=== PATIENT | female | born 1935 | race African-American/Black ===

== ENCOUNTER 2019-06-26 10:51 | Inpatient (IN) | payer MEDICARE, OTHER ==
[~2019-06-26] VITALS: Ht 154.9 cm; Wt 49.2 kg
[~2019-06-26 10:51] MED LIST: ASPIRIN-LOW81 MG ORAL; COMBIVENT RESPIM4 GM IH; DIAZEPAM5 MG ORAL; GLIMEPIRIDE1 MG ORAL; KEFLEX500 MG ORAL; LASIX20 M1 ORAL; LEVOTHYROXINE25 MCG ORAL; LISINOPRIL-HCT1 EACH ORAL; LOSARTAN POTASS25 MG ORAL; METOCLOPRAMIDE H5 M1 ORAL; NOVOLIN 70100 UNIT/1 SUBQ; OMEPRAZOLE20 M3 ORAL; PANTOPRAZOLE SO40 MG ORAL; SEROQUEL200 MG ORAL; TRAMADOL HCL50 MG ORAL; VITAMIN D1000 UNI1 ORAL; ZOCOR20 M1 ORAL; ZOFRAN4 M3 ORAL
--- NOTE | 2019-06-26 10:55 | NUR ---
ED Nurse Note: PT walked in to ED for C/O cough x 2 days. PT reports having Hx of COPD. PT denies fever or recent travels.
[2019-06-26 10:56] VITALS: BP 176/86
[2019-06-26] MEDS ORDERED: Ipratropium 0.02% Inh Soln 2.5ml UD HHN ONE (11:15)
[2019-06-26] MEDS ORDERED: Albuterol ud Inhalation HHN ONE ×2 (11:15→12:00)
[2019-06-26] MEDS ORDERED: Azithromycin 250mg tab PO ONE (11:15)
[2019-06-26 11:51] LABS: BASOPHILS % (AUTO) 1.5 % (0.0-2.0); EOSINOPHILS % (AUTO) 10.8 % (0.0-3.0); HEMATOCRIT 37.3 % (37.0-47.0); HEMOGLOBIN 12.1 G/DL (12.0-16.0); LYMPHOCYTES % (AUTO) 53.2 % (20.0-45.0); MEAN CORPUSCULAR VOLUME 79 FL (80-99); MONOCYTES % (AUTO) 5.5 % (1.0-10.0); PLATELET COUNT 217 K/UL (150-450); RED BLOOD COUNT 4.74 M/UL (4.20-5.40); RED CELL DISTRIBUTION WIDTH 16.6 % (11.6-14.8); WHITE BLOOD COUNT 5.6 K/UL (4.8-10.8)
[2019-06-26 11:58] LABS: APPEARANCE,URINE SLIGHTLY CLOUDY; BILIRUBIN, URINE NEGATIVE (NEGATIVE); COLOR,URINE YELLOW; GLUCOSE, URINE (UA) NEGATIVE (NEGATIVE); KETONES,URINE NEGATIVE (NEGATIVE); LEUKOCYTE ESTERASE ,URINE 3+ (NEGATIVE); NITRITE,URINE NEGATIVE (NEGATIVE); PH,URINE 6.5 (4.5-8.0); PROTEIN,URINE NEGATIVE (NEGATIVE); UROBILINOGEN,URINE NORMAL MG/DL (0.0-1.0)
[2019-06-26 12:01] LABS: ANION GAP 9 mmol/L (5-15); BLOOD UREA NITROGEN 12 mg/dL (7-18); CALCIUM 9.5 MG/DL (8.5-10.1); CARBON DIOXIDE 29 MMOL/L (21-32); CHLORIDE 107 MMOL/L (98-107); CREATININE 0.8 MG/DL (0.55-1.30); POTASSIUM 3.7 MMOL/L (3.5-5.1); SODIUM 145 MMOL/L (136-145)
[2019-06-26 12:06] LABS: ALANINE AMINOTRANSFERASE 14 U/L (12-78); ALKALINE PHOSPHATASE 162 U/L (46-116); ASPARTATE AMINO TRANSFERASE 15 U/L (15-37); BILIRUBIN,TOTAL 0.2 MG/DL (0.2-1.0)
[2019-06-26 12:10] VITALS: BP 186/74
--- NOTE | 2019-06-26 12:27 | Diagnostic Imaging Report ---
Indication: Dyspnea Comparison: None A single view chest radiograph was obtained. Findings: No definite infiltrate or pulmonary vascular congestion identified. The heart is enlarged. The aorta is mildly enlarged consistent with atherosclerotic vascular disease. The bones are osteopenic. There are thoracic vertebral enthesophytes at multiple levels. Impression: No acute disease
--- NOTE | 2019-06-26 13:31 | NUR ---
ED Nurse Note: Noted latest BP: 186/74, reported to Dr. Walters.
--- NOTE | 2019-06-26 14:05 | Emergency Room Report ---
History of Present Illness General Chief Complaint: Dyspnea/Respdistress Source: Patient Present Illness HPI This patient states that for the past 2 days she has had shortness of breath and difficulty breathing. She has had a cough with sputum production. She denies fever or chills. She denies nausea or vomiting. She denies chest pain. She has been using her home inhalers without relief. She has no other complaints. COVID-19 risk:Travel to affect: No Coronavirus symptoms experienc: Shortness of Breath, Cough Allergies: Coded Allergies: PENICILLIN V (Verified Allergy, Severe, 08/26/13) PENICILLINS (Unverified Allergy, Unknown, 06/26/19) Patient History Past Medical History: see triage record, DM, HTN, COPD Social History: Denies: smoking, alcohol use, drug use Reviewed Nursing Documentation: PMH: Agreed; PSxH: Agreed Nursing Documentation-PMH Hx Hypertension: Yes Hx COPD: Yes Hx Diabetes: Yes Review of Systems All Other Systems: negative except mentioned in HPI Physical Exam Vital Signs Date Time Temp Pulse Resp B/P (MAP) Pulse Ox O2 Delivery O2 Flow Rate FiO2 06/26/19 10:46 98.1 65 17 184/84 (117) 89 Room Air 06/26/19 11:22 21 Sp02 EP Interpretation: reviewed, normal General Appearance: no apparent distress, alert, GCS 15, non-toxic Head: normocephalic, atraumatic Eyes: bilateral eye normal inspection, bilateral eye PERRL ENT: hearing grossly normal, normal pharynx, no angioedema, normal voice Neck: full range of motion, supple/symm/no masses Respiratory: chest non-tender, no respiratory distress, no accessory muscle use , wheezing, expiration Cardiovascular #1: regular rate, rhythm, no edema Gastrointestinal: normal bowel sounds, non tender, soft, non-distended, no guarding, no rebound Rectal: deferred Musculoskeletal: normal inspection, back normal, normal range of motion, non- tender Neurologic: alert, motor strength/tone normal, oriented x3, sensory intact, responsive, speech normal Psychiatric: judgement/insight normal, memory normal, mood/affect normal, no suicidal/homicidal ideation Skin: no rash, normal color Medical Decision Making Diagnostic Impression: Primary Impression: COPD exacerbation ER Course This elderly female presents with a COPD exacerbation. She was given 10 mg of nebulized albuterol. She continued to have wheezing and dyspnea despite maximal treatment with albuterol, prednisone. I also gave the patient broad- spectrum antibiotics as a precaution. Patient will be admitted for pulmonary hygiene and further evaluation and treatment. Laboratory Tests Test 06/26/19 11:20 06/26/19 11:21 Urine Color Yellow Urine Appearance Slightly cloudy Urine pH 6.5 (4.5-8.0) Urine Specific [place] 1.015 (1.005-1.035) Urine Protein Negative (NEGATIVE) Urine Glucose (UA) Negative (NEGATIVE) Urine Ketones Negative (NEGATIVE) Urine Blood 2+ (NEGATIVE) H Urine Nitrite Negative (NEGATIVE) Urine Bilirubin Negative (NEGATIVE) Urine Urobilinogen Normal MG/DL (0.0-1.0) Urine Leukocyte Esterase 3+ (NEGATIVE) H Urine RBC 2-4 /HPF (0 - 2) H Urine WBC 20-30 /HPF (0 - 2) H Urine Squamous Epithelial Cells Many /LPF (NONE/OCC) H Urine Bacteria Moderate /HPF (NONE) H White Blood Count 5.6 K/UL (4.8-10.8) Red Blood Count 4.74 M/UL (4.20-5.40) Hemoglobin 12.1 G/DL (12.0-16.0) Hematocrit 37.3 % (37.0-47.0) Mean Corpuscular Volume 79 FL (80-99) L Mean Corpuscular Hemoglobin 25.5 PG (27.0-31.0) L Mean Corpuscular Hemoglobin Concent 32.4 G/DL (32.0-36.0) Red Cell Distribution Width 16.6 % (11.6-14.8) H Platelet Count 217 K/UL (150-450) Mean Platelet Volume 7.1 FL (6.5-10.1) Neutrophils (%) (Auto) 29.0 % (45.0-75.0) L Lymphocytes (%) (Auto) 53.2 % (20.0-45.0) H Monocytes (%) (Auto) 5.5 % (1.0-10.0) Eosinophils (%) (Auto) 10.8 % (0.0-3.0) H Basophils (%) (Auto) 1.5 % (0.0-2.0) Sodium Level 145 MMOL/L (136-145) Potassium Level 3.7 MMOL/L (3.5-5.1) Chloride Level 107 MMOL/L (98-107) Carbon Dioxide Level 29 MMOL/L (21-32) Anion Gap 9 mmol/L (5-15) Blood Urea Nitrogen 12 mg/dL (7-18) Creatinine 0.8 MG/DL (0.55-1.30) Estimated Glomerular Filtration Rate > 60 mL/min (>60) Glucose Level 110 MG/DL (74-106) H Calcium Level 9.5 MG/DL (8.5-10.1) Total Bilirubin 0.2 MG/DL (0.2-1.0) Aspartate Amino Transferase (AST) 15 U/L (15-37) Alanine Aminotransferase (ALT) 14 U/L (12-78) Alkaline Phosphatase 162 U/L (46-116) H Troponin I 0.000 ng/mL (0.000-0.056) Total Protein 8.1 G/DL (6.4-8.2) Albumin 4.0 G/DL (3.4-5.0) Globulin 4.1 g/dL Albumin/Globulin Ratio 1.0 (1.0-2.7) Microbiology Date/Time Source Procedure Growth Status 06/26/19 11:20 Nasal Nares - Final Complete 06/26/19 11:20 Nasal Nares - Final Complete EKG Diagnostic Results Rate: bradycardiac Rhythm: other - S.bradycardia ST Segments: other - NSST findings Rhythm Strip Diag. Results EP Interpretation: yes Rate: 80's Rhythm: NSR, no PVC's, no ectopy Chest X-Ray Diagnostic Results Chest X-Ray Diagnostic Results : Chest X-Ray Ordered: Yes # of Views/Limited/Complete: 1 View Indication: Shortness of Breath EP Interpretation: Yes Interpretation: no consolidation, no effusion, no pneumothorax, no acute cardiopulmonary disease Impression: No acute disease Electronically Signed by: Delores Walters DO Last Vital Signs Date Time Temp Pulse Resp B/P (MAP) Pulse Ox O2 Delivery O2 Flow Rate FiO2 06/26/19 12:16 66 18 100 Room Air 21 64 15 100 06/26/19 10:56 98.1 176/86 Disposition: ADMITTED INPATIENT Condition: Serious Referrals: NOT CHOSEN IPA/,REFERRING (PCP) Delores Walters DO Jun 26, 2019 14:05
[2019-06-26] MEDS ORDERED: DiphenhydrAMINE 25mg Tab ORAL PRN (14:15)
--- NOTE | 2019-06-26 14:17 | History and Physical ---
History of Present Illness General Date patient seen: Jun 26, 2019 Time patient seen: 14:00 Reason for Hospitalization: Dyspnea/Respdistress Present Illness HPI 83 year old woman with history of COPD, not on supplemental oxygen, HTN, hypothyroidism, NIDDM who presented to the ED with Allergies: Coded Allergies: PENICILLIN V (Verified Allergy, Severe, 08/26/13) PENICILLINS (Unverified Allergy, Unknown, 06/26/19) Medication History Scheduled Aspirin (Aspirin EC), 81 MG ORAL DAILY, (Reported) Cephalexin* (Keflex*), 500 MG ORAL Q6H Cholecalciferol (Vitamin D3)* (Vitamin D*), 1,000 UNIT ORAL DAILY, (Reported) Furosemide* (Lasix*), 20 MG ORAL DAILY, (Reported) Glimepiride* (Glimepiride*), 2 MG ORAL DAILY, (Reported) Hum Insulin Nph/Reg Insulin Hm (Novolin 70-30 100 Unit/Ml Vial), 15 SUBQ ACBREAKFAST, (Reported) Hum Insulin Nph/Reg Insulin Hm (Novolin 70-30 100 Unit/Ml Vial), 5 SUBQ QHS, ( Reported) Ipratropium/Albuterol Sulfate (Combivent Respimat Inhal [place]), 4 GM IH DAILY, ( Reported) Levothyroxine Sodium* (Levothyroxine Sodium*), 12.5 MCG ORAL DAILY, (Reported) Lisinopril/Hydrochlorothiazide 10-12.5 Mg Tab (Lisinopril-Hctz 10-12.5 Mg Tab), 1 TAB ORAL DAILY, (Reported) Losartan Potassium* (Losartan Potassium*), 25 MG ORAL DAILY, (Reported) Metoclopramide Hcl* (Metoclopramide Hcl*), 5 MG ORAL EVERY 6 HOURS, (Reported) Omeprazole (Omeprazole), 20 MG ORAL DAILY, (Reported) Pantoprazole* (Pantoprazole*), 40 MG ORAL DAILY, (Reported) Quetiapine Fumarate* (Seroquel*), 300 MG ORAL DAILY, (Reported) Simvastatin (Zocor), 20 MG ORAL BEDTIME, (Reported) Scheduled PRN Diazepam* (Diazepam*), 5 MG ORAL BID PRN for For Anxiety, (Reported) Ondansetron* (Zofran*), 4 MG ORAL Q6H PRN for Nausea & Vomiting, (Reported) Tramadol Hcl* (Ultram*), 50 MG ORAL Q6H PRN for For Pain Patient History Healthcare decision maker Resuscitation status Advanced Directive on File Physical Exam Last 24 Hour Vital Signs Date Time Temp Pulse Resp B/P (MAP) Pulse Ox O2 Delivery O2 Flow Rate FiO2 06/26/19 12:16 66 18 100 Room Air 21 64 15 100 06/26/19 11:22 54 18 100 Room Air 21 57 16 99 06/26/19 10:56 98.1 70 18 176/86 89 Room Air 06/26/19 10:56 70 18 Room Air 06/26/19 10:46 98.1 65 17 184/84 (117) 89 Room Air Laboratory Tests Test 06/26/19 11:20 06/26/19 11:21 Urine Color Yellow Urine Appearance Slightly cloudy Urine pH 6.5 (4.5-8.0) Urine Specific [place] 1.015 (1.005-1.035) Urine Protein Negative (NEGATIVE) Urine Glucose (UA) Negative (NEGATIVE) Urine Ketones Negative (NEGATIVE) Urine Blood 2+ (NEGATIVE) H Urine Nitrite Negative (NEGATIVE) Urine Bilirubin Negative (NEGATIVE) Urine Urobilinogen Normal MG/DL (0.0-1.0) Urine Leukocyte Esterase 3+ (NEGATIVE) H Urine RBC 2-4 /HPF (0 - 2) H Urine WBC 20-30 /HPF (0 - 2) H Urine Squamous Epithelial Cells Many /LPF (NONE/OCC) H Urine Bacteria Moderate /HPF (NONE) H White Blood Count 5.6 K/UL (4.8-10.8) Red Blood Count 4.74 M/UL (4.20-5.40) Hemoglobin 12.1 G/DL (12.0-16.0) Hematocrit 37.3 % (37.0-47.0) Mean Corpuscular Volume 79 FL (80-99) L Mean Corpuscular Hemoglobin 25.5 PG (27.0-31.0) L Mean Corpuscular Hemoglobin Concent 32.4 G/DL (32.0-36.0) Red Cell Distribution Width 16.6 % (11.6-14.8) H Platelet Count 217 K/UL (150-450) Mean Platelet Volume 7.1 FL (6.5-10.1) Neutrophils (%) (Auto) 29.0 % (45.0-75.0) L Lymphocytes (%) (Auto) 53.2 % (20.0-45.0) H Monocytes (%) (Auto) 5.5 % (1.0-10.0) Eosinophils (%) (Auto) 10.8 % (0.0-3.0) H Basophils (%) (Auto) 1.5 % (0.0-2.0) Sodium Level 145 MMOL/L (136-145) Potassium Level 3.7 MMOL/L (3.5-5.1) Chloride Level 107 MMOL/L (98-107) Carbon Dioxide Level 29 MMOL/L (21-32) Anion Gap 9 mmol/L (5-15) Blood Urea Nitrogen 12 mg/dL (7-18) Creatinine 0.8 MG/DL (0.55-1.30) Estimat Glomerular Filtration Rate > 60 mL/min (>60) Glucose Level 110 MG/DL (74-106) H Calcium Level 9.5 MG/DL (8.5-10.1) Total Bilirubin 0.2 MG/DL (0.2-1.0) Aspartate Amino Transf (AST/SGOT) 15 U/L (15-37) Alanine Aminotransferase (ALT/SGPT) 14 U/L (12-78) Alkaline Phosphatase 162 U/L (46-116) H Troponin I 0.000 ng/mL (0.000-0.056) Total Protein 8.1 G/DL (6.4-8.2) Albumin 4.0 G/DL (3.4-5.0) Globulin 4.1 g/dL Albumin/Globulin Ratio 1.0 (1.0-2.7) Microbiology Date/Time Source Procedure Growth Status 06/26/19 11:20 Nasal Nares - Final Complete 06/26/19 11:20 Nasal Nares - Final Complete Height (Feet): 5 Height (Inches): 1.00 Weight (Pounds): 114 Medications Current Medications Medications (Trade) Dose Ordered Sig/Sergio Route PRN Reason Start Time Stop Time Status Last Admin Dose Admin Acetaminophen (Tylenol) 650 mg Q4H PRN ORAL Mild Pain (Pain Scale 1-3) 06/26/19 14:15 07/26/19 14:14 UNV Albuterol/ Ipratropium (Albuterol/ Ipratropium) 3 ml Q4H HHN 06/26/19 14:15 07/01/19 14:14 UNV Aspirin (Ecotrin) 81 mg DAILY ORAL 06/27/19 09:00 08/11/19 08:59 UNV Azithromycin (Zithromax) 250 mg DAILY ORAL 06/27/19 09:00 07/04/19 08:59 UNV Dextrose (Dextrose 50%) 25 ml Q30M PRN IV Hypoglycemia 06/26/19 14:15 09/24/19 14:14 UNV Dextrose (Dextrose 50%) 25 ml Q30M PRN IV Hypoglycemia 06/26/19 14:15 09/24/19 14:14 UNV Dextrose (Dextrose 50%) 50 ml Q30M PRN IV Hypoglycemia 06/26/19 14:15 09/24/19 14:14 UNV Dextrose (Dextrose 50%) 50 ml Q30M PRN IV Hypoglycemia 06/26/19 14:15 09/24/19 14:14 UNV Diazepam (Valium) 5 mg BID PRN ORAL For Anxiety 06/26/19 14:15 07/03/19 14:14 UNV Diphenhydramine HCl (Benadryl) 25 mg Q6H PRN ORAL Itching/Pruritis 06/26/19 14:15 07/26/19 14:14 UNV Docusate Sodium (Colace) 100 mg EVERY 12 HOURS ORAL 06/26/19 21:00 07/26/19 20:59 UNV Heparin Sodium (Porcine) (Heparin 5000 units/ml) 5,000 units EVERY 12 HOURS SUBQ 06/26/19 21:00 08/10/19 20:59 UNV Insulin Aspart (NovoLOG) BEFORE MEALS AND HS SUBQ 06/26/19 16:30 09/24/19 16:29 UNV Levothyroxine Sodium (Synthroid) 12.5 mcg DAILY ORAL 06/27/19 09:00 07/27/19 08:59 UNV Losartan Potassium (Cozaar) 25 mg DAILY ORAL 06/27/19 09:00 07/27/19 08:59 UNV Ondansetron HCl (Zofran) 4 mg Q6H PRN IVP Nausea & Vomiting 06/26/19 14:15 07/26/19 14:14 UNV Prednisone (predniSONE) 60 mg DAILY ORAL 06/27/19 09:00 07/27/19 08:59 UNV Vitamin D (Vitamin D) 1,000 intlu DAILY ORAL 06/27/19 09:00 07/27/19 08:59 UNV Bjorn Castillo MD Jun 26, 2019 14:17
[2019-06-26 14:23] VITALS: BP 177/78
--- NOTE | 2019-06-26 14:35 | History and Physical ---
History of Present Illness General Date patient seen: Jun 26, 2019 Time patient seen: 14:18 Reason for Hospitalization: Dyspnea/Respdistress Present Illness HPI 83 year old woman with COPD, not on supplemental oxygen at baseline, HTN, NIDDM , hypothyroidism who presented to the ED with days 3 days of progressive dyspnea and cough productive of scant sputum. She also reports exertional dyspnea but not chest pain, palpitations, edema. She denies fever or chills. She denies nausea or vomiting. She denies chest pain. She has been using her home inhalers without relief. She has no other complaint. No sick contacts or exposure to persons with known COVID-19. No airplane travel overseas. In ED she was treated with inhaled bronchodilators, prednisone with some improvement in her symptoms. CXR and influenza swab negative. She was referred for admission for COPD exacerbation. Family Hx: No premature CAD Social Hx: Lives with son who feels well, no similar symptoms Allergies: Coded Allergies: PENICILLIN V (Verified Allergy, Severe, 08/26/13) PENICILLINS (Unverified Allergy, Unknown, 06/26/19) Medication History Scheduled Aspirin (Aspirin EC), 81 MG ORAL DAILY, (Reported) Cephalexin* (Keflex*), 500 MG ORAL Q6H Cholecalciferol (Vitamin D3)* (Vitamin D*), 1,000 UNIT ORAL DAILY, (Reported) Furosemide* (Lasix*), 20 MG ORAL DAILY, (Reported) Glimepiride* (Glimepiride*), 2 MG ORAL DAILY, (Reported) Hum Insulin Nph/Reg Insulin Hm (Novolin 70-30 100 Unit/Ml Vial), 15 SUBQ ACBREAKFAST, (Reported) Hum Insulin Nph/Reg Insulin Hm (Novolin 70-30 100 Unit/Ml Vial), 5 SUBQ QHS, ( Reported) Ipratropium/Albuterol Sulfate (Combivent Respimat Inhal [place]), 4 GM IH DAILY, ( Reported) Levothyroxine Sodium* (Levothyroxine Sodium*), 12.5 MCG ORAL DAILY, (Reported) Lisinopril/Hydrochlorothiazide 10-12.5 Mg Tab (Lisinopril-Hctz 10-12.5 Mg Tab), 1 TAB ORAL DAILY, (Reported) Losartan Potassium* (Losartan Potassium*), 25 MG ORAL DAILY, (Reported) Metoclopramide Hcl* (Metoclopramide Hcl*), 5 MG ORAL EVERY 6 HOURS, (Reported) Omeprazole (Omeprazole), 20 MG ORAL DAILY, (Reported) Pantoprazole* (Pantoprazole*), 40 MG ORAL DAILY, (Reported) Quetiapine Fumarate* (Seroquel*), 300 MG ORAL DAILY, (Reported) Simvastatin (Zocor), 20 MG ORAL BEDTIME, (Reported) Scheduled PRN Diazepam* (Diazepam*), 5 MG ORAL BID PRN for For Anxiety, (Reported) Ondansetron* (Zofran*), 4 MG ORAL Q6H PRN for Nausea & Vomiting, (Reported) Tramadol Hcl* (Ultram*), 50 MG ORAL Q6H PRN for For Pain Patient History Healthcare decision maker Resuscitation status Advanced Directive on File Review of Systems Constitutional: Denies: chills, sweats, fever Respiratory: Reports: cough, shortness of breath, wheezing; Denies: stridor, TEE Cardiovascular: Denies: chest pain, edema, palpitations Gastrointestinal: Denies: abdominal pain, constipation, diarrhea Genitourinary: Denies: dysuria Musculoskeletal: Denies: back pain Skin: Denies: rash Neurological: Denies: headache Endocrine: Denies: excessive sweating Hematologic/Lymphatic: Denies: anemia Physical Exam General Appearance: no apparent distress, alert HEENT: atraumatic, anicteric Neck: normal alignment, supple Respiratory/Chest: no accessory muscle use, decreased breath sounds, expiratory wheezing Cardiovascular/Chest: normal rate, regular rhythm Abdomen: non tender, soft, no organomegaly, no mass Extremities: non-tender, normal inspection 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 grossly normal, no motor/sensory deficits, alert, oriented x 3 Last 24 Hour Vital Signs Date Time Temp Pulse Resp B/P (MAP) Pulse Ox O2 Delivery O2 Flow Rate FiO2 06/26/19 12:16 66 18 100 Room Air 21 64 15 100 06/26/19 11:22 54 18 100 Room Air 21 57 16 99 06/26/19 10:56 98.1 70 18 176/86 89 Room Air 06/26/19 10:56 70 18 Room Air 06/26/19 10:46 98.1 65 17 184/84 (117) 89 Room Air Laboratory Tests Test 06/26/19 11:20 06/26/19 11:21 Urine Color Yellow Urine Appearance Slightly cloudy Urine pH 6.5 (4.5-8.0) Urine Specific [place] 1.015 (1.005-1.035) Urine Protein Negative (NEGATIVE) Urine Glucose (UA) Negative (NEGATIVE) Urine Ketones Negative (NEGATIVE) Urine Blood 2+ (NEGATIVE) H Urine Nitrite Negative (NEGATIVE) Urine Bilirubin Negative (NEGATIVE) Urine Urobilinogen Normal MG/DL (0.0-1.0) Urine Leukocyte Esterase 3+ (NEGATIVE) H Urine RBC 2-4 /HPF (0 - 2) H Urine WBC 20-30 /HPF (0 - 2) H Urine Squamous Epithelial Cells Many /LPF (NONE/OCC) H Urine Bacteria Moderate /HPF (NONE) H White Blood Count 5.6 K/UL (4.8-10.8) Red Blood Count 4.74 M/UL (4.20-5.40) Hemoglobin 12.1 G/DL (12.0-16.0) Hematocrit 37.3 % (37.0-47.0) Mean Corpuscular Volume 79 FL (80-99) L Mean Corpuscular Hemoglobin 25.5 PG (27.0-31.0) L Mean Corpuscular Hemoglobin Concent 32.4 G/DL (32.0-36.0) Red Cell Distribution Width 16.6 % (11.6-14.8) H Platelet Count 217 K/UL (150-450) Mean Platelet Volume 7.1 FL (6.5-10.1) Neutrophils (%) (Auto) 29.0 % (45.0-75.0) L Lymphocytes (%) (Auto) 53.2 % (20.0-45.0) H Monocytes (%) (Auto) 5.5 % (1.0-10.0) Eosinophils (%) (Auto) 10.8 % (0.0-3.0) H Basophils (%) (Auto) 1.5 % (0.0-2.0) Sodium Level 145 MMOL/L (136-145) Potassium Level 3.7 MMOL/L (3.5-5.1) Chloride Level 107 MMOL/L (98-107) Carbon Dioxide Level 29 MMOL/L (21-32) Anion Gap 9 mmol/L (5-15) Blood Urea Nitrogen 12 mg/dL (7-18) Creatinine 0.8 MG/DL (0.55-1.30) Estimat Glomerular Filtration Rate > 60 mL/min (>60) Glucose Level 110 MG/DL (74-106) H Calcium Level 9.5 MG/DL (8.5-10.1) Total Bilirubin 0.2 MG/DL (0.2-1.0) Aspartate Amino Transf (AST/SGOT) 15 U/L (15-37) Alanine Aminotransferase (ALT/SGPT) 14 U/L (12-78) Alkaline Phosphatase 162 U/L (46-116) H Troponin I 0.000 ng/mL (0.000-0.056) Total Protein 8.1 G/DL (6.4-8.2) Albumin 4.0 G/DL (3.4-5.0) Globulin 4.1 g/dL Albumin/Globulin Ratio 1.0 (1.0-2.7) Microbiology Date/Time Source Procedure Growth Status 06/26/19 11:20 Nasal Nares - Final Complete 06/26/19 11:20 Nasal Nares - Final Complete Height (Feet): 5 Height (Inches): 1.00 Weight (Pounds): 114 Medications Current Medications Medications (Trade) Dose Ordered Sig/Sergio Route PRN Reason Start Time Stop Time Status Last Admin Dose Admin Acetaminophen (Tylenol) 650 mg Q4H PRN ORAL Mild Pain (Pain Scale 1-3) 06/26/19 14:15 07/26/19 14:14 UNV Albuterol/ Ipratropium (Albuterol/ Ipratropium) 3 ml Q4H HHN 06/26/19 14:15 07/01/19 14:14 UNV Aspirin (Ecotrin) 81 mg DAILY ORAL 06/27/19 09:00 08/11/19 08:59 UNV Azithromycin (Zithromax) 250 mg DAILY ORAL 06/27/19 09:00 07/04/19 08:59 UNV Dextrose (Dextrose 50%) 25 ml Q30M PRN IV Hypoglycemia 06/26/19 14:15 09/24/19 14:14 UNV Dextrose (Dextrose 50%) 25 ml Q30M PRN IV Hypoglycemia 06/26/19 14:15 09/24/19 14:14 UNV Dextrose (Dextrose 50%) 50 ml Q30M PRN IV Hypoglycemia 06/26/19 14:15 09/24/19 14:14 UNV Dextrose (Dextrose 50%) 50 ml Q30M PRN IV Hypoglycemia 06/26/19 14:15 09/24/19 14:14 UNV Diazepam (Valium) 5 mg BID PRN ORAL For Anxiety 06/26/19 14:15 07/03/19 14:14 UNV Diphenhydramine HCl (Benadryl) 25 mg Q6H PRN ORAL Itching/Pruritis 06/26/19 14:15 07/26/19 14:14 UNV Docusate Sodium (Colace) 100 mg EVERY 12 HOURS ORAL 06/26/19 21:00 07/26/19 20:59 UNV Heparin Sodium (Porcine) (Heparin 5000 units/ml) 5,000 units EVERY 12 HOURS SUBQ 06/26/19 21:00 08/10/19 20:59 UNV Insulin Aspart (NovoLOG) BEFORE MEALS AND HS SUBQ 06/26/19 16:30 09/24/19 16:29 UNV Levothyroxine Sodium (Synthroid) 12.5 mcg DAILY ORAL 06/27/19 09:00 07/27/19 08:59 UNV Losartan Potassium (Cozaar) 25 mg DAILY ORAL 06/27/19 09:00 07/27/19 08:59 UNV Ondansetron HCl (Zofran) 4 mg Q6H PRN IVP Nausea & Vomiting 06/26/19 14:15 07/26/19 14:14 UNV Prednisone (predniSONE) 60 mg DAILY ORAL 06/27/19 09:00 07/27/19 08:59 UNV Vitamin D (Vitamin D) 1,000 intlu DAILY ORAL 06/27/19 09:00 07/27/19 08:59 UNV Assessment/Plan Assessment/Plan: 83 year old woman with COPD, HTN, DM, hypothyroidism who presented to the ED with progressive dyspnea, wheeze, progressive cough #Acute hypoxic respiratory failure #COPD exacerbation #Acute bronchitis -admit to medical service -Prednisone 60 mg po daily -Duoneb q4h -azithromycin -supplemental oxygen to maintain sat 88-92% -influenza swab and CXR negative -COVID19 testing sent in ED, will follow up -droplet precautions #Type 2 DM -hold oral DM meds -lispro SS #HTN -cont losartan #Hypothyroidism -cont levothyroxine I spent 70 minutes on this patient's case, and >50% was dedicated to counseling and/or care coordination. Time of note may not reflect time of encounter. Bjorn Castillo MD Jun 26, 2019 14:35
--- NOTE | 2019-06-26 14:40 | NUR ---
ED Nurse Note: Latest BP: 132/83; after hydralazine 10mg (0.5ml) was administered. Pt VSS, in RA, denies any discomfort nor pain.
--- NOTE | 2019-06-26 16:18 | Pulmonology Progress Note ---
Assessment/Plan Assessment/Plan Pulmonary Consultation HPI Patient is an 83 year old woman with Past Medical History of Chronic Obstructive Pulmonary Disease, Hypertension, Type 2 Diabetes, Hypothyroidism admitted complaining of 3 days of progressive dyspnea and minimally productive cough productive. Denies chest pain, palpitations, edema, fever or chills. She denies nausea or vomiting. She denies chest pain. She has been using her home inhalers without relief. She has no other complaint. No sick contacts or exposure to persons with known COVID-19. No overseas travel overseas. CXR and influenza swab negative. Noted to have evidence of UTI. Allergies: Coded Allergies: PENICILLIN V (Verified Allergy, Severe, 08/26/13) PENICILLINS (Unverified Allergy, Unknown, 06/26/19) Medications noted Family Hx: No premature CAD Social Hx: Lives with son who feels well, no similar symptoms Resuscitation status: Full code Constitutional: Denies: chills, sweats, fever Respiratory: Reports: cough, shortness of breath, wheezing; Denies: stridor, TEE Cardiovascular: Denies: chest pain, edema, palpitations Gastrointestinal: Denies: abdominal pain, constipation, diarrhea Genitourinary: Denies: dysuria Musculoskeletal: Denies: back pain Skin: Denies: rash Neurological: Denies: headache Endocrine: Denies: excessive sweating Hematologic/Lymphatic: Denies: anemia Physical Exam Vital Signs noted Date Time Temp Pulse Resp B/P (MAP) Pulse Ox O2 Delivery O2 Flow Rate FiO2 06/26/19 12:16 66 18 100 Room Air 21 64 15 100 06/26/19 11:22 54 18 100 Room Air 21 57 16 99 06/26/19 10:56 98.1 70 18 176/86 89 Room Air 06/26/19 10:56 70 18 Room Air 06/26/19 10:46 98.1 65 17 184/84 (117) 89 Room Air General Appearance: no apparent distress, alert HEENT: atraumatic, anicteric Neck: normal alignment, supple Respiratory/Chest: no accessory muscle use, decreased breath sounds, expiratory wheezing noted Cardiovascular/Chest: normal rate, regular rhythm Abdomen: non tender, soft, no organomegaly, no mass Extremities: non-tender, normal inspection 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 grossly normal, no motor/sensory deficits, alert, oriented x 3 Laboratory Tests Test 06/26/19 11:20 3/18/20 11:21 Urine Color Yellow Urine Appearance Slightly cloudy Urine pH 6.5 (4.5-8.0) Urine Specific [place] 1.015 (1.005-1.035) Urine Protein Negative (NEGATIVE) Urine Glucose (UA) Negative (NEGATIVE) Urine Ketones Negative (NEGATIVE) Urine Blood 2+ (NEGATIVE) H Urine Nitrite Negative (NEGATIVE) Urine Bilirubin Negative (NEGATIVE) Urine Urobilinogen Normal MG/DL (0.0-1.0) Urine Leukocyte Esterase 3+ (NEGATIVE) H Urine RBC 2-4 /HPF (0 - 2) H Urine WBC 20-30 /HPF (0 - 2) H Urine Squamous Epithelial Cells Many /LPF (NONE/OCC) H Urine Bacteria Moderate /HPF (NONE) H White Blood Count 5.6 K/UL (4.8-10.8) Red Blood Count 4.74 M/UL (4.20-5.40) Hemoglobin 12.1 G/DL (12.0-16.0) Hematocrit 37.3 % (37.0-47.0) Mean Corpuscular Volume 79 FL (80-99) L Mean Corpuscular Hemoglobin 25.5 PG (27.0-31.0) L Mean Corpuscular Hemoglobin Concent 32.4 G/DL (32.0-36.0) Red Cell Distribution Width 16.6 % (11.6-14.8) H Platelet Count 217 K/UL (150-450) Mean Platelet Volume 7.1 FL (6.5-10.1) Neutrophils (%) (Auto) 29.0 % (45.0-75.0) L Lymphocytes (%) (Auto) 53.2 % (20.0-45.0) H Monocytes (%) (Auto) 5.5 % (1.0-10.0) Eosinophils (%) (Auto) 10.8 % (0.0-3.0) H Basophils (%) (Auto) 1.5 % (0.0-2.0) Sodium Level 145 MMOL/L (136-145) Potassium Level 3.7 MMOL/L (3.5-5.1) Chloride Level 107 MMOL/L (98-107) Carbon Dioxide Level 29 MMOL/L (21-32) Anion Gap 9 mmol/L (5-15) Blood Urea Nitrogen 12 mg/dL (7-18) Creatinine 0.8 MG/DL (0.55-1.30) Estimat Glomerular Filtration Rate > 60 mL/min (>60) Glucose Level 110 MG/DL (74-106) H Calcium Level 9.5 MG/DL (8.5-10.1) Total Bilirubin 0.2 MG/DL (0.2-1.0) Aspartate Amino Transf (AST/SGOT) 15 U/L (15-37) Alanine Aminotransferase (ALT/SGPT) 14 U/L (12-78) Alkaline Phosphatase 162 U/L (46-116) H Troponin I 0.000 ng/mL (0.000-0.056) Total Protein 8.1 G/DL (6.4-8.2) Albumin 4.0 G/DL (3.4-5.0) Globulin 4.1 g/dL Albumin/Globulin Ratio 1.0 (1.0-2.7) Microbiology Date/Time Source Procedure Growth Status 06/26/19 11:20 Nasal Nares - Final Complete 06/26/19 11:20 Nasal Nares - Final Complete Height (Feet): 5 Height (Inches): 1.00 Weight (Pounds): 114 Medications Current Medications Medications (Trade) Dose Ordered Sig/Sergio Route PRN Reason Start Time Stop Time Status Last Admin Dose Admin Acetaminophen (Tylenol) 650 mg Q4H PRN ORAL Mild Pain (Pain Scale 1-3) 06/26/19 14:15 07/26/19 14:14 UNV Albuterol/ Ipratropium (Albuterol/ Ipratropium) 3 ml Q4H HHN 06/26/19 14:15 07/01/19 14:14 UNV Aspirin (Ecotrin) 81 mg DAILY ORAL 06/27/19 09:00 08/11/19 08:59 UNV Azithromycin (Zithromax) 250 mg DAILY ORAL 06/27/19 09:00 07/04/19 08:59 UNV Dextrose (Dextrose 50%) 25 ml Q30M PRN IV Hypoglycemia 06/26/19 14:15 09/24/19 14:14 UNV Dextrose (Dextrose 50%) 25 ml Q30M PRN IV Hypoglycemia 06/26/19 14:15 09/24/19 14:14 UNV Dextrose (Dextrose 50%) 50 ml Q30M PRN IV Hypoglycemia 06/26/19 14:15 09/24/19 14:14 UNV Dextrose (Dextrose 50%) 50 ml Q30M PRN IV Hypoglycemia 06/26/19 14:15 09/24/19 14:14 UNV Diazepam (Valium) 5 mg BID PRN ORAL For Anxiety 06/26/19 14:15 07/03/19 14:14 UNV Diphenhydramine HCl (Benadryl) 25 mg Q6H PRN ORAL Itching/Pruritis 06/26/19 14:15 07/26/19 14:14 UNV Docusate Sodium (Colace) 100 mg EVERY 12 HOURS ORAL 06/26/19 21:00 07/26/19 20:59 UNV Heparin Sodium (Porcine) (Heparin 5000 units/ml) 5,000 units EVERY 12 HOURS SUBQ 06/26/19 21:00 08/10/19 20:59 UNV Insulin Aspart (NovoLOG) BEFORE MEALS AND HS SUBQ 06/26/19 16:30 09/24/19 16:29 UNV Levothyroxine Sodium (Synthroid) 12.5 mcg DAILY ORAL 06/27/19 09:00 07/27/19 08:59 UNV Losartan Potassium (Cozaar) 25 mg DAILY ORAL 06/27/19 09:00 07/27/19 08:59 UNV Ondansetron HCl (Zofran) 4 mg Q6H PRN IVP Nausea & Vomiting 06/26/19 14:15 07/26/19 14:14 UNV Prednisone (predniSONE) 60 mg DAILY ORAL 06/27/19 09:00 07/27/19 08:59 UNV Vitamin D (Vitamin D) 1,000 intlu DAILY ORAL 06/27/19 09:00 07/27/19 08:59 UNV Assessment/Plan Assessment/Plan: 83 year old woman with COPD, HTN, DM, hypothyroidism who presented to the ED with progressive dyspnea, wheeze, progressive cough #Acute hypoxic respiratory failure #COPD exacerbation #Acute bronchitis -Solumedrol -Duoneb q4h -Levaquin -supplemental oxygen to maintain sat 90-96% -COVID19 testing sent in ED, will follow up -droplet precautions -PPX SQH #Type 2 DM -lispro SS #HTN -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 #Hypothyroidism -cont levothyroxine #UTI -await culture EKG: NSR CXR: No acute cardiopulmonary disease Subjective ROS Limited/Unobtainable: No Respiratory: Reports: shortness of breath Allergies: Coded Allergies: PENICILLIN V (Verified Allergy, Severe, 08/26/13) PENICILLINS (Unverified Allergy, Unknown, 06/26/19) Objective Last 24 Hour Vital Signs Date Time Temp Pulse Resp B/P (MAP) Pulse Ox O2 Delivery O2 Flow Rate FiO2 06/26/19 14:25 177/78 06/26/19 14:23 98.1 70 18 177/78 100 Room Air 21 06/26/19 12:16 66 18 100 Room Air 21 64 15 100 06/26/19 12:10 98.1 75 21 186/74 100 Room Air 21 06/26/19 11:22 54 18 100 Room Air 21 57 16 99 06/26/19 10:56 98.1 70 18 176/86 89 Room Air 06/26/19 10:56 70 18 Room Air 06/26/19 10:46 98.1 65 17 184/84 (117) 89 Room Air Microbiology Date/Time Source Procedure Growth Status 06/26/19 11:20 Nasal Nares - Final Complete 06/26/19 11:20 Nasal Nares - Final Complete Laboratory Tests 06/26/19 11:20: Urine Color Yellow, Urine Appearance Slightly cloudy, Urine pH 6.5, Urine Specific [place] 1.015, Urine Protein Negative, Urine Glucose (UA) Negative, Urine Ketones Negative, Urine Blood 2+H, Urine Nitrite Negative, Urine Bilirubin Negative, Urine Urobilinogen Normal, Urine Leukocyte Esterase 3+H, Urine RBC 2-4H, Urine WBC 20-30H, Urine Squamous Epithelial Cells ManyH, Urine Bacteria ModerateH 06/26/19 11:21: White Blood Count 5.6, Red Blood Count 4.74, Hemoglobin 12.1, Hematocrit 37.3, Mean Corpuscular Volume 79L, Mean Corpuscular Hemoglobin 25.5L, Mean Corpuscular Hemoglobin Concent 32.4, Red Cell Distribution Width 16.6H, Platelet Count 217, Mean Platelet Volume 7.1, Neutrophils (%) (Auto) 29.0L, Lymphocytes (%) (Auto) 53.2H, Monocytes (%) (Auto) 5.5, Eosinophils (%) (Auto) 10.8H, Basophils (%) (Auto) 1.5, Sodium Level 145, Potassium Level 3.7, Chloride Level 107, Carbon Dioxide Level 29, Anion Gap 9, Blood Urea Nitrogen 12 , Creatinine 0.8, Estimat Glomerular Filtration Rate > 60, Glucose Level 110H, Calcium Level 9.5, Total Bilirubin 0.2, Aspartate Amino Transf (AST/SGOT) 15, Alanine Aminotransferase (ALT/SGPT) 14, Alkaline Phosphatase 162H, Troponin I 0.000, Total Protein 8.1, Albumin 4.0, Globulin 4.1, Albumin/Globulin Ratio 1.0 Current Medications Medications (Trade) Dose Ordered Sig/Sergio Route PRN Reason Start Time Stop Time Status Last Admin Dose Admin Acetaminophen (Tylenol) 650 mg Q4H PRN ORAL Mild Pain (Pain Scale 1-3) 06/26/19 14:15 07/26/19 14:14 UNV Albuterol/ Ipratropium (Albuterol/ Ipratropium) 3 ml Q4H HHN 06/26/19 14:15 07/01/19 14:14 UNV Aspirin (Ecotrin) 81 mg DAILY ORAL 06/27/19 09:00 08/11/19 08:59 UNV Azithromycin (Zithromax) 250 mg DAILY ORAL 06/27/19 09:00 07/04/19 08:59 UNV Dextrose (Dextrose 50%) 25 ml Q30M PRN IV Hypoglycemia 06/26/19 14:15 09/24/19 14:14 Dextrose (Dextrose 50%) 50 ml Q30M PRN IV Hypoglycemia 06/26/19 14:15 09/24/19 14:14 Diazepam (Valium) 5 mg BID PRN ORAL For Anxiety 06/26/19 14:15 07/03/19 14:14 UNV Diphenhydramine HCl (Benadryl) 25 mg Q6H PRN ORAL Itching/Pruritis 06/26/19 14:15 07/26/19 14:14 Docusate Sodium (Colace) 100 mg EVERY 12 HOURS ORAL 06/26/19 21:00 07/26/19 20:59 UNV Heparin Sodium (Porcine) (Heparin 5000 units/ml) 5,000 units EVERY 12 HOURS SUBQ 06/26/19 21:00 08/10/19 20:59 UNV Insulin Aspart (NovoLOG) BEFORE MEALS AND HS SUBQ 06/26/19 16:30 09/24/19 16:29 UNV Levothyroxine Sodium (Synthroid) 12.5 mcg DAILY ORAL 06/27/19 09:00 07/27/19 08:59 UNV Losartan Potassium (Cozaar) 25 mg DAILY ORAL 06/27/19 09:00 07/27/19 08:59 UNV Ondansetron HCl (Zofran) 4 mg Q6H PRN IVP Nausea & Vomiting 06/26/19 14:15 07/26/19 14:14 Prednisone (predniSONE) 60 mg DAILY ORAL 06/27/19 09:00 07/27/19 08:59 UNV Vitamin D (Vitamin D) 1,000 intlu DAILY ORAL 06/27/19 09:00 07/27/19 08:59 UNV Daniel Anthony MD Jun 26, 2019 16:18
[2019-06-26] MEDS ORDERED: NovoLOG Insulin Flexpen SUBQ SCH (16:30)
[2019-06-26] MEDS ORDERED: Albuterol/Ipratropium 3ml neb HHN SCH (19:00)
--- NOTE | 2019-06-26 19:20 | NUR ---
ED Nurse Note: Hand-off report given to REYMUNDO Salas.
--- NOTE | 2019-06-26 19:20 | NUR ---
ED Nurse Note: Belongings list completed.
[2019-06-26 20:43] VITALS: BP 165/81
[2019-06-26] MEDS ORDERED: Docusate 100mg cap ORAL SCH ×2 (21:00→23:00)
[2019-06-26] MEDS ORDERED: Heparin 5000 units/ml inj SUBQ SCH ×2 (21:00→23:00)
--- NOTE | 2019-06-26 22:00 | NUR ---
ED Nurse Note: Report given to REYMUNDO Bonilla in SDU.
--- NOTE | 2019-06-26 22:03 | NUR ---
ED Nurse Note: Confirmed with charge nurse patient is not droplet precautions. Informed REYMUNDO Bonilla in SDU for tele overflow.
--- NOTE | 2019-06-26 22:17 | NUR ---
NURSE NOTES: Spoke with [facility] [place]ist at [facility] regarding pts. medications for 2100 and pt. not here on SDU floor- she will reschedule medications.
--- NOTE | 2019-06-26 22:20 | NUR ---
TRANSFER TO FLOOR: Patient transferred to tele overflow as ordered, per ERMD. Report given to REYMUNDO Bonilla. Patient transported via gurney on ACLS protocol and monitoring specialist in stable condition accompanied by 1 RN.
[2019-06-26 22:30] VITALS: BP 197/90
[2019-06-26] MEDS: NovoLOG Insulin Flexpen SUBQ SCH (22:30)
--- NOTE | 2019-06-26 22:30 | NUR ---
NURSE NOTES: Received report from Nataly RN, pt. brought up from ER- pt. awake in bed, A/O x's 4- able to make needs known, no signs or symptoms of acute cardiac or respiratory distress noted, call light within easy reach, bed alarm on, side rails up x's3 and safety brakes engaged, pt. aware to ask for assist if ambulating, pt. teaching done and pt. oriented to room, quality assurance monitor placed, full body assessment done- skin dry but intact, pt. appears to be sating well on room air at 95%- no distress noted, Rt. AC20G IV intact and patent, safety measures continued, will continued with plan of care.
--- NOTE | 2019-06-26 23:21 | NUR ---
NURSE NOTES: Left message with DR. Moreno's exchange with Cat regarding b/p elevated at 197/90- awaiting for call back from doctor. Pt. remains stable.
--- NOTE | 2019-06-26 23:37 | NUR ---
NURSE NOTES: Received call back from Alysha Collier- regarding patients b/p elevated 197/90- per doctor to order Hydralazine 25mg PO Q6hrs prn SBP>165- orders carried out.
[2019-06-26] MEDS: HydrALAZINE 25mg tab ORAL PRN (23:50)
[2019-06-27] VITALS: BP 150/76
[2019-06-27] MEDS: Albuterol/Ipratropium 3ml neb HHN SCH ×3 (00:22→07:27)
--- NOTE | 2019-06-27 01:47 | NUR ---
NURSE NOTES: left message with DR. Moreno's exchange- with Cat- pt. complaining of head pain and would like pain medicine- awaiting for call back from doctor.
--- NOTE | 2019-06-27 02:00 | NUR ---
NURSE NOTES: Called DR. Anthony- pt. complaining of head pain- Tylenol effective at first but now has headache again- per DR. Anthony can order Ibuprofen 800mg PO Q8hrs prn pain- orders carried out.
--- NOTE | 2019-06-27 02:05 | NUR ---
NURSE NOTES: DR. Long calling back - made her aware DR. Anthony gave order for Ibuprofen 800mg Q8hrs PRN pain- no new orders given by DR. Long.
--- NOTE | 2019-06-27 02:10 | NUR ---
NURSE NOTES: left message with pipeline to verify Ibuprofen- pt. asking for it now- or she will leave AMA- pipeline aware.
[2019-06-27 04:00] VITALS: BP 161/96
--- NOTE | 2019-06-27 04:30 | NUR ---
NURSE NOTES: pt. asking medication for anxiety- feeling restless in bed and worried because she wants to go home- talk therapy provided, but unsuccessful- administered Valium as ordered in eMAR- will continue to monitor pt. and with plan of care.
[2019-06-27 05:11] LABS: BASOPHILS % (AUTO) 0.7 % (0.0-2.0); EOSINOPHILS % (AUTO) 0.1 % (0.0-3.0); HEMOGLOBIN 11.9 G/DL (12.0-16.0); LYMPHOCYTES % (AUTO) 33.1 % (20.0-45.0); MEAN CORPUSCULAR VOLUME 78 FL (80-99); MONOCYTES % (AUTO) 5.2 % (1.0-10.0); PLATELET COUNT 228 K/UL (150-450); RED BLOOD COUNT 4.64 M/UL (4.20-5.40); RED CELL DISTRIBUTION WIDTH 16.3 % (11.6-14.8); WHITE BLOOD COUNT 5.4 K/UL (4.8-10.8)
--- NOTE | 2019-06-27 05:13 | NUR ---
NURSE NOTES: pt. appears to be in bed resting comfortably- chest noted rising up and down- pt. remains stable- will continue to monitor pt.
[2019-06-27] MEDS: NovoLOG Insulin Flexpen SUBQ SCH (05:30)
[2019-06-27 05:50] VITALS: BP 168/74
[2019-06-27] MEDS: HydrALAZINE 25mg tab ORAL PRN (05:51)
--- NOTE | 2019-06-27 06:04 | NUR ---
NURSE NOTES: Jalen from pharmacy calling regarding if doctor would like to d/c Prednisone as she will be on Solu-Medrol- will call DR. Anthony.
[2019-06-27] MEDS ORDERED: Solu-MEDROL 40mg Inj IVP SCH (06:05)
--- NOTE | 2019-06-27 06:05 | NUR ---
NURSE NOTES: Called DR. Anthony to see if he would like to d/c prednisone as she will be on Solu-Medrol- per doctor okay to d/c Prednisone.
--- NOTE | 2019-06-27 06:07 | NUR ---
NURSE NOTES: pt. not using call light to call me when she is using restroom- so not able to collect sample for urine cx. Pt. agrees to call next time she has to use restroom.
[2019-06-27 06:12] LABS: ALANINE AMINOTRANSFERASE 13 U/L (12-78); ALBUMIN 4.4 G/DL (3.4-5.0); ALKALINE PHOSPHATASE 161 U/L (46-116); ANION GAP 15 mmol/L (5-15); ASPARTATE AMINO TRANSFERASE 16 U/L (15-37); BILIRUBIN,TOTAL 0.3 MG/DL (0.2-1.0); BLOOD UREA NITROGEN 14 mg/dL (7-18); CALCIUM 10.1 MG/DL (8.5-10.1); CARBON DIOXIDE 26 MMOL/L (21-32); CHLORIDE 104 MMOL/L (98-107); CREATININE 0.7 MG/DL (0.55-1.30); POTASSIUM 2.9 MMOL/L (3.5-5.1); SODIUM 145 MMOL/L (136-145)
[2019-06-27 06:14] VITALS: BP 158/72
--- NOTE | 2019-06-27 07:02 | NUR ---
HAND-OFF: Report given to Thang RN, pt. remains stable and no signs of distress noted- nurse aware to f/u on any am abnormal labs.
--- NOTE | 2019-06-27 07:35 | NUR ---
NURSE NOTES: LATE ENTRY: RECEIVED REPORT FROM KATHY Fay PT SITTING UP IN BED. NO C/O PAIN SOB OR COUGH. FEELING MUCH BETTER. PT ASKED ABOUT LEAVING THIS AM. WAS INFORMED THAT MD MAKES ROUNDS IN AM REGARDING STATUS. PT STATES UNDERSTANDING. BREAKFAST TRAY AT BEDSIDE. PT EAT 100% OF MEAL, DIET CCHO MEDIUM. VSS. A/OX4. NSR. ON 2L NC. PT CONTINENT AND VOIDS. NO BM AT THIS TIME. PT STATES WANTS TO LEAVE TODAY. SKIN INTACT. IV ACCESS RT AC 20. TKO. EDUCATED PT ON NEED FOR URINE COLLECTION AND PLAN OF CARE. WILL CONTINUE TO MONITOR PT.
--- NOTE | 2019-06-27 08:00 | NUR ---
NURSE NOTES: LATE ENTRY: PT PLACED ON DROPLET PRECAUTION , PENDING R/O RESULTS. PT DOES NOT WANT TO BE SHUT UP IN ROOM. BECAME UPSET ABOUT DOOR AND ANYTHING THAT WILL KEEP HER IN THE HOSPITAL LONGER.
--- NOTE | 2019-06-27 08:10 | NUR ---
NURSE NOTES: LATE ENTRY: RESPONDED TO BED ALARM. PT HAS GOTTEN UP AND GATHERED CLOTHES, STATES SHE IS LEAVING RIGHT. NOW. EDUCATED PT ON NEED TO SPEAK WITH MD, TO STAY FOR FINALE DISCHARGE AND MEDICATIONS, K IS LOW THIS AM. NEED TO ARRANGE TRANSPORTATION. PT CONTINUES TO DRESS, NOT ALLOW REMOVAL ID BAND OR IV . AGREED TO SIGN AMA, PT PROVIDED WITH INFORMATION ABOUT COVID-19, PRECAUTIONS.
--- NOTE | 2019-06-27 08:30 | NUR ---
NURSE NOTES: 814 Primary RN Stefanie Desir notified me patient walked out AMA,stated she will take bus [phone] I called family-Joey Pal,notified him patient went home against medical advice,patient as stated will take bus,son stated she takes bus
[2019-06-27] MEDS ORDERED: Losartan 25mg tab ORAL SCH (09:00)
[2019-06-27] MEDS ORDERED: Aspirin EC 81mg tab ORAL SCH (09:00)
[2019-06-27] MEDS ORDERED: Vitamin D 1000 IU Tab ORAL SCH (09:00)
[2019-06-27] MEDS ORDERED: Levothyroxine 25mcg tab ORAL SCH (09:00)
[2019-06-27] MEDS ORDERED: Levofloxacin 750mg tab ORAL SCH (09:00)
[2019-06-27] MEDS ORDERED: Azithromycin 250mg tab ORAL SCH (09:00)
--- NOTE | 2019-06-27 14:31 | NUR ---
CASE MANAGEMENT: INITIAL REVIEW 83YR OLD FEMALE FROM HOME CC: DYSPNEA / RESPIRATORY DISTRESS/ COUGH WITH SPUTUM PRODUCTION SI:COPD EXACERBATION 98.1 65 17 184/84 89% ON RA BG 110 ALP 162 IS:PROVENTIL HHN X2 ATROVENT HHN X1 PREDNISONE PO X1 CHEST X-RAY- NO ACUTE DISEASE \: 2W STEP DOWN UNIT
--- NOTE | 2019-06-27 18:43 | Discharge Summary ---
Discharge Summary Hospital Course Date of Admission Jun 26, 2019 at 12:25 Date of Discharge Jun 27, 2019 at 08:12 Admitting Diagnosis COPD exacerbation HPI Monica Valdez is a 83 year old female who was admitted on Jun 26, 2019 at 12:25 for Chronic Obstructive Pulmonary Disease Exacerbation Consultations Pulm Hospital Course 83 year old woman with COPD, HTN, DM, hypothyroidism who presented to the ED with progressive dyspnea, wheeze, progressive cough. She was treated with prednisone and Duoneb + azithromycin, seen by Pulm. Patient signed out AMA early this morning before I could see her. She was instructed by RN to self- quarantine at home for 14 days and return to ED for worsening condition #Acute hypoxic respiratory failure #COPD exacerbation #Acute bronchitis #Type 2 DM #HTN #Hypothyroidism Time of note may not reflect time of encounter. Discharge Condition Upon Discharge: stable Discharge Vital Signs Last Vital Signs Date Time Temp Pulse Resp B/P (MAP) Pulse Ox O2 Delivery O2 Flow Rate FiO2 06/27/19 07:27 88 18 99 Nasal Cannula 2.0 28 87 18 97 06/27/19 06:14 158/72 (100) 06/27/19 04:00 98.0 Discharge Disposition Patient signed out AMA Discharge Diagnoses: (1) COPD exacerbation Bjorn Castillo MD Jun 27, 2019 18:43
== END 2019-06-27 08:12 | disposition left against medical advice (07) | DRG 190 ==
LOC: EMR 11:45 → 2W 12:25 → EDBEDREQ 14:49 → 2W 22:25
DX: J44.1 Chronic obstructive pulmonary disease with (acute) exacerbation (principal); J96.01 Acute respiratory failure with hypoxia; E11.9 Type 2 diabetes mellitus without complications; Z88.0 Allergy status to penicillin; E03.9 Hypothyroidism, unspecified; J20.9 Acute bronchitis, unspecified; J44.0 Chronic obstructive pulmonary disease with (acute) lower respiratory infection
CPT/HCPCS: 36415; 71045; 80053; 81003; 82962; 84484; 85025; 86710; 87040; 87086; 87181; 93005; 94640; 94664; 96374; 99285; J1815; J7620

== ENCOUNTER 2019-08-24 21:29 | Inpatient (IN) | payer MEDICARE, OTHER ==
[~2019-08-24] VITALS: Ht 154.9 cm; Wt 51.7 kg
[2019-08-24] MEDS ORDERED: CATAPRES0.1 MG ORAL (21:41)
[2019-08-24] MEDS ORDERED: GLUCOPHAGE500 MG ORAL (21:41)
[2019-08-24] MEDS ORDERED: PRAVACHOL20 MG ORAL (21:41)
[2019-08-24 22:00] VITALS: BP 145/98
--- NOTE | 2019-08-24 22:00 | NUR ---
ED Nurse Note: recieved pt from home, here with c/o dizziness with high blood pressure, pt has hx of HTN and has only taken her am meds, not night meds, states dont know why, pt is also active smoker with COPD and has mild sob on exertion, denies chest pain or any pain, only c/o dizziness, ambulates with minimal assist, pt gowned, placed on cardiac monitoring, iv line palced and labs done, will resume care as odered and closely monitor.
--- NOTE | 2019-08-24 22:03 | Emergency Room Report ---
History of Present Illness General Chief Complaint: Dizziness Source: Patient Present Illness HPI Patient came to the emergency department because dizziness diplopia and blood pressure out of control. She says she took her blood pressure medication the morning but not this evening. She denies any headache or chest pain. She denies palpitations. She was admitted to the hospital 2 weeks ago. She did not feel a change in her vision at that time. Patient admitted June 25 and signed out AGAINST MEDICAL ADVICE June 26 with COPD exacerbation. The patient still smokes. No fevers, chills, sore throat, chest pain, nausea, vomiting, diarrhea, dysuria , abdominal pain, joint pain, rashes, depression, anxiety, headache. Allergies: Coded Allergies: PENICILLIN V (Verified Allergy, Severe, 08/26/13) PENICILLINS (Unverified Allergy, Unknown, 06/26/19) COVID-19 Screening Contact w/high risk pt: No Recent Travel to affected area: No Experienced COVID-19 symptoms?: No COVID-19 symptoms experienced: Shortness of Breath, Cough COVID-19 Testing performed OVERWEAVER: No Patient History Past Medical History: see triage record, old chart reviewed Social History: Reports: smoking Social History Narrative From home Reviewed Nursing Documentation: PMH: Agreed; PSxH: Agreed Nursing Documentation-PMH Hx Cardiac Problems: No Hx Hypertension: Yes Hx COPD: Yes Hx Diabetes: Yes Hx Cancer: No Hx Gastrointestinal Problems: No Hx Neurological Problems: No Review of Systems All Other Systems: negative except mentioned in HPI Physical Exam Vital Signs Date Time Temp Pulse Resp B/P (MAP) Pulse Ox O2 Delivery O2 Flow Rate FiO2 08/24/19 21:33 98.2 78 16 200/96 (130) 92 Room Air Sp02 EP Interpretation: reviewed, normal General Appearance: well appearing, no apparent distress, GCS 15 Head: normocephalic, atraumatic Eyes: bilateral eye normal inspection, bilateral eye PERRL, bilateral eye EOMI - However reported diplopia ENT: moist mucus membranes - Brown coating on tongue Neck: supple Respiratory: wheezing - Posttussive Cardiovascular #1: regular rate, rhythm, no edema Cardiovascular #2: 2+ radial (R) Gastrointestinal: normal inspection, normal bowel sounds, non tender, no mass, non-distended Genitourinary: no CVA tenderness Musculoskeletal: back normal, normal range of motion, no calf tenderness, gait/ station normal Neurologic: alert, motor strength/tone normal, DTRs symmetric, oriented x3, sensory intact, cerebellar normal, other - Reported ported diplopia which is extinguished to by covering each eye individually Psychiatric: mood/affect normal Skin: no rash Medical Decision Making Diagnostic Impression: Primary Impression: Hypertensive urgency Additional Impressions: Diplopia Renal insufficiency UTI (urinary tract infection) Qualified Codes: N30.00 - Acute cystitis without hematuria ER Course Patient presents with dizziness, diplopia and blood pressure out of control. Differential includes TIA, stroke, electrolyte imbalance amongst others. Patient evaluated with EKG, chest x-ray and CT of the head. Patient be treated with dose of her Catapres at this time. EKG with prolonged QT non injury. CXR scarring and COPD. Signed out to Dr. Quevedo. CT of the head and labs pending. Admit obs tele Dr. Moreno. Improved but still c/o diplopia. Clonidine repeated as blood pressure still high. Laboratory Tests Test 08/24/19 21:45 08/24/19 22:00 08/26/19 04:30 Urine Color Pale yellow Urine Appearance Slightly cloudy Urine pH 5 (4.5-8.0) Urine Specific [place] 1.010 (1.005-1.035) Urine Protein Negative (NEGATIVE) Urine Glucose (UA) Negative (NEGATIVE) Urine Ketones Negative (NEGATIVE) Urine Blood 1+ (NEGATIVE) H Urine Nitrite Negative (NEGATIVE) Urine Bilirubin Negative (NEGATIVE) Urine Urobilinogen Normal MG/DL (0.0-1.0) Urine Leukocyte Esterase 2+ (NEGATIVE) H Urine RBC 2-4 /HPF (0 - 2) H Urine WBC 10-15 /HPF (0 - 2) H Urine Squamous Epithelial Cells Few /LPF (NONE/OCC) Urine Bacteria Moderate /HPF (NONE) H White Blood Count 5.6 K/UL (4.8-10.8) 5.4 K/UL (4.8-10.8) Red Blood Count 4.63 M/UL (4.20-5.40) 4.45 M/UL (4.20-5.40) Hemoglobin 11.8 G/DL (12.0-16.0) L 11.5 G/DL (12.0-16.0) L Hematocrit 38.4 % (37.0-47.0) 34.9 % (37.0-47.0) L Mean Corpuscular Volume 83 FL (80-99) 78 FL (80-99) L Mean Corpuscular Hemoglobin 25.5 PG (27.0-31.0) L 25.7 PG (27.0-31.0) L Mean Corpuscular Hemoglobin Concent 30.7 G/DL (32.0-36.0) L 32.9 G/DL (32.0-36.0) Red Cell Distribution Width 20.2 % (11.6-14.8) H 17.5 % (11.6-14.8) H Platelet Count 215 K/UL (150-450) 197 K/UL (150-450) Mean Platelet Volume 8.2 FL (6.5-10.1) 6.7 FL (6.5-10.1) Neutrophils (%) (Auto) 32.0 % (45.0-75.0) L 35.1 % (45.0-75.0) L Lymphocytes (%) (Auto) 51.1 % (20.0-45.0) H 49.1 % (20.0-45.0) H Monocytes (%) (Auto) 5.3 % (1.0-10.0) 5.2 % (1.0-10.0) Eosinophils (%) (Auto) 9.4 % (0.0-3.0) H 9.1 % (0.0-3.0) H Basophils (%) (Auto) 2.2 % (0.0-2.0) H 1.5 % (0.0-2.0) Prothrombin Time 10.1 SEC (9.30-11.50) Prothrombin Time INR 0.9 (0.9-1.1) Activated Partial Thromboplast Time 29 SEC (23-33) Sodium Level 142 MMOL/L (136-145) 141 MMOL/L (136-145) Potassium Level 4.0 MMOL/L (3.5-5.1) 3.4 MMOL/L (3.5-5.1) L Chloride Level 106 MMOL/L (98-107) 106 MMOL/L (98-107) Carbon Dioxide Level 27 MMOL/L (21-32) 24 MMOL/L (21-32) Anion Gap 9 mmol/L (5-15) 11 mmol/L (5-15) Blood Urea Nitrogen 11 mg/dL (7-18) 18 mg/dL (7-18) Creatinine 1.1 MG/DL (0.55-1.30) 1.1 MG/DL (0.55-1.30) Estimated Glomerular Filtration Rate 57.2 mL/min (>60) 57.2 mL/min (>60) Glucose Level 114 MG/DL (74-106) H 100 MG/DL (74-106) Calcium Level 8.9 MG/DL (8.5-10.1) 8.8 MG/DL (8.5-10.1) Total Bilirubin 0.3 MG/DL (0.2-1.0) 0.5 MG/DL (0.2-1.0) Aspartate Amino Transferase (AST) < 5 U/L (15-37) L 13 U/L (15-37) L Alanine Aminotransferase (ALT) 11 U/L (12-78) L 9 U/L (12-78) L Alkaline Phosphatase 131 U/L (46-116) H 125 U/L (46-116) H Total Creatine Kinase 123 U/L (26-308) Troponin I 0.001 ng/mL (0.000-0.056) 0.002 ng/mL (0.000-0.056) Pro-B-Type Natriuretic Peptide 318 pg/mL (0-125) H Total Protein 8.2 G/DL (6.4-8.2) 7.4 G/DL (6.4-8.2) Albumin 3.7 G/DL (3.4-5.0) 3.3 G/DL (3.4-5.0) L Globulin 4.5 g/dL 4.1 g/dL Albumin/Globulin Ratio 0.8 (1.0-2.7) L 0.8 (1.0-2.7) L EKG Diagnostic Results Rate: normal ST Segments: no acute changes - LVH QT prolongation Rhythm Strip Diag. Results EP Interpretation: yes Rhythm: NSR, no PVC's, no ectopy Chest X-Ray Diagnostic Results Chest X-Ray Diagnostic Results : Chest X-Ray Ordered: Yes # of Views/Limited/Complete: 1 View Indication: Other EP Interpretation: Yes Interpretation: no consolidation, no effusion, no pneumothorax, other - COPD and scarring Impression: Other Electronically Signed by: Electronically signed by Daniel Mcghee MD CT/MRI/US Diagnostic Results CT/MRI/US Diagnostic Results : Imaging Test Ordered: head Impression IMPRESSION: 1. No acute intracranial abnormality. 2. Parenchymal volume loss and chronic microvascular ischemic changes. Last Vital Signs Date Time Temp Pulse Resp B/P (MAP) Pulse Ox O2 Delivery O2 Flow Rate FiO2 08/25/19 00:00 98.2 68 22 192/75 96 Room Air Status: improved Disposition: PLACE IN OBSERVATION Condition: Serious Daniel Mcghee MD August 24, 2019 22:03
[2019-08-24] MEDS ORDERED: BUSPIRONE HCL5 M2 ORAL (22:17)
[2019-08-24 22:20] VITALS: BP 203/88
[2019-08-24 22:47] LABS: APPEARANCE,URINE SLIGHTLY CLOUDY; BILIRUBIN, URINE NEGATIVE (NEGATIVE); COLOR,URINE PALE YELLOW; GLUCOSE, URINE (UA) NEGATIVE (NEGATIVE); KETONES,URINE NEGATIVE (NEGATIVE); LEUKOCYTE ESTERASE ,URINE 2+ (NEGATIVE); NITRITE,URINE NEGATIVE (NEGATIVE); PH,URINE 5 (4.5-8.0); PROTEIN,URINE NEGATIVE (NEGATIVE); UROBILINOGEN,URINE NORMAL MG/DL (0.0-1.0)
[2019-08-24 22:48] LABS: INR 0.9 (0.9-1.1)
[2019-08-24 22:50] LABS: BASOPHILS % (AUTO) 2.2 % (0.0-2.0); EOSINOPHILS % (AUTO) 9.4 % (0.0-3.0); HEMATOCRIT 38.4 % (37.0-47.0); HEMOGLOBIN 11.8 G/DL (12.0-16.0); LYMPHOCYTES % (AUTO) 51.1 % (20.0-45.0); MEAN CORPUSCULAR VOLUME 83 FL (80-99); MONOCYTES % (AUTO) 5.3 % (1.0-10.0); PLATELET COUNT 215 K/UL (150-450); RED BLOOD COUNT 4.63 M/UL (4.20-5.40); RED CELL DISTRIBUTION WIDTH 20.2 % (11.6-14.8); WHITE BLOOD COUNT 5.6 K/UL (4.8-10.8)
[2019-08-24 22:53] LABS: ANION GAP 9 mmol/L (5-15); BLOOD UREA NITROGEN 11 mg/dL (7-18); CALCIUM 8.9 MG/DL (8.5-10.1); CARBON DIOXIDE 27 MMOL/L (21-32); CHLORIDE 106 MMOL/L (98-107); CREATININE 1.1 MG/DL (0.55-1.30); SODIUM 142 MMOL/L (136-145)
--- NOTE | 2019-08-24 22:53 | Diagnostic Imaging Report ---
EXAM: XR Chest, 1 View CLINICAL HISTORY: DIZZY TECHNIQUE: Frontal view of the chest. COMPARISON: No relevant prior studies available. FINDINGS: Lungs: Atelectasis versus scarring in the mid lungs and lung bases. No consolidation or interstitial edema. Pleural space: No pleural effusion. No pneumothorax. Heart: Unremarkable. No cardiomegaly. Bones/joints: No fracture. Vasculature: Tortuous and ectatic thoracic aorta. IMPRESSION: Atelectasis versus scarring in the mid lungs and lung bases. No acute abnormality.
[2019-08-24 23:00] VITALS: BP 199/83
[2019-08-24 23:04] LABS: ALANINE AMINOTRANSFERASE 11 U/L (12-78); ALBUMIN 3.7 G/DL (3.4-5.0); ALBUMIN/GLOBULIN RATIO 0.8 (1.0-2.7); ALKALINE PHOSPHATASE 131 U/L (46-116); ASPARTATE AMINO TRANSFERASE < 5 U/L (15-37); BILIRUBIN,TOTAL 0.3 MG/DL (0.2-1.0); CREATINE KINASE 123 U/L (26-308)
--- NOTE | 2019-08-24 23:07 | Diagnostic Imaging Report ---
EXAM: CT Head Without Intravenous Contrast CLINICAL HISTORY: DIZZY TECHNIQUE: Axial computed tomography images of the head/brain without intravenous contrast. CTDI is 53.4 mGy and DLP is 912 mGy-cm. One or more of the following dose reduction techniques were used: automated exposure control, adjustment of the mA and/or kV according to patient size, use of iterative reconstruction technique. COMPARISON: No relevant prior studies available. FINDINGS: Brain: No intracranial hemorrhage, mass-effect, or edema. Parenchymal volume loss and chronic microvascular ischemic changes. No hydrocephalus. Bones/joints: Unremarkable. Soft tissues: Unremarkable. Sinuses: Unremarkable as visualized. Mastoid air cells: Unremarkable as visualized. IMPRESSION: 1. No acute intracranial abnormality. 2. Parenchymal volume loss and chronic microvascular ischemic changes.
--- NOTE | 2019-08-24 23:26 | History and Physical ---
History of Present Illness General Date patient seen: August 24, 2019 Reason for Hospitalization: DizzinessUTI Present Illness HPI Patient is an 84 YO Female with HTN, HDL, hypothyroidism, COPD , GERD presenting with chief complaint of dizziness. Patient reports that around dinner time she experienced sudden onset of lightheadedness. She measured her blood pressure at home which was elevated at 200mmhg. Patient also reports of fatigue and weakness in the bilateral lower extremities. Patient denies any CP, SOB, Nausea, vomiting, change in vision or hearing. Denies any syncopal events. She reports compliance with all her home medications. On arrival to the ED, patient's vitals were significant for B.P 189/86mmHg. No significant acute abnormalcies on CTH. The UA was significant for 2+LE, and 10- 15 wbc. Patient is being admitted for further observation and medical management. Allergies: Coded Allergies: PENICILLIN V (Verified Allergy, Severe, 08/26/13) PENICILLINS (Unverified Allergy, Unknown, 06/26/19) COVID-19 Screening Contact w/high risk pt: No Recent Travel to affected area: No Experienced COVID-19 symptoms?: No COVID-19 symptoms experienced: Shortness of Breath, Cough Medication History Scheduled Aspirin (Aspirin EC), 81 MG ORAL DAILY, (Reported) Buspirone HCl* (Buspirone HCl*), 7.5 MG ORAL BID, (Reported) Cholecalciferol (Vitamin D3)* (Vitamin D*), 1,000 UNIT ORAL DAILY, (Reported) Clonidine Hcl* (Catapres*), 0.1 MG ORAL EVERY 12 HOURS, (Reported) Furosemide* (Lasix*), 20 MG ORAL DAILY, (Reported) Glimepiride* (Glimepiride*), 2 MG ORAL DAILY, (Reported) Ipratropium/Albuterol Sulfate (Combivent Respimat Inhal [place]), 4 GM IH DAILY, ( Reported) Levothyroxine Sodium* (Levothyroxine Sodium*), 12.5 MCG ORAL DAILY, (Reported) Lisinopril/Hydrochlorothiazide 10-12.5 Mg Tab (Lisinopril-Hctz 10-12.5 Mg Tab), 1 TAB ORAL DAILY, (Reported) Losartan Potassium* (Losartan Potassium*), 25 MG ORAL DAILY, (Reported) Metformin Hcl* (Glucophage*), 500 MG ORAL DAILY, (Reported) Omeprazole (Omeprazole), 20 MG ORAL DAILY, (Reported) Pantoprazole* (Pantoprazole*), 40 MG ORAL DAILY, (Reported) Pravastatin Sod* (Pravachol*), 20 MG ORAL BEDTIME, (Reported) Quetiapine Fumarate* (Seroquel*), 300 MG ORAL DAILY, (Reported) Simvastatin (Zocor), 20 MG ORAL BEDTIME, (Reported) Scheduled PRN Ondansetron* (Zofran*), 4 MG ORAL Q6H PRN for Nausea & Vomiting, (Reported) Discontinued Medications Cephalexin* (Keflex*), 500 MG ORAL Q6H Discontinued Reason: Therapy completed Diazepam* (Diazepam*), 5 MG ORAL BID PRN for For Anxiety, (Reported) Discontinued Reason: Therapy completed Metoclopramide Hcl* (Metoclopramide Hcl*), 5 MG ORAL EVERY 6 HOURS, (Reported) Discontinued Reason: MD discontinued med Tramadol Hcl* (Ultram*), 50 MG ORAL Q6H PRN for For Pain Discontinued Reason: Therapy completed Patient History Healthcare decision maker Resuscitation status Advanced Directive on File Review of Systems Constitutional: Reports: no symptoms Eye: Reports: no symptoms ENT: Reports: no symptoms Respiratory: Reports: no symptoms Cardiovascular: Reports: see HPI Gastrointestinal: Reports: no symptoms, see HPI Genitourinary: Reports: no symptoms Musculoskeletal: Reports: no symptoms Skin: Reports: no symptoms Psychiatric: Reports: no symptoms Neurological: Reports: no symptoms Hematologic/Lymphatic: Reports: no symptoms Physical Exam General Appearance: alert Lines, tubes and drains: peripheral HEENT: normocephalic, atraumatic Neck: non-tender, supple Respiratory/Chest: chest wall non-tender Cardiovascular/Chest: normal peripheral pulses Abdomen: normal bowel sounds Extremities: normal range of motion Neurologic: alert, oriented x 3 Last 24 Hour Vital Signs Date Time Temp Pulse Resp B/P (MAP) Pulse Ox O2 Delivery O2 Flow Rate FiO2 08/24/19 23:13 211/92 08/24/19 22:27 208/88 08/24/19 22:00 98.2 64 22 145/98 97 Room Air 08/24/19 21:50 78 16 Room Air 08/24/19 21:33 98.2 78 16 200/96 (130) 92 Room Air Laboratory Tests Test 08/24/19 21:45 08/24/19 22:00 Urine Color Pale yellow Urine Appearance Slightly cloudy Urine pH 5 (4.5-8.0) Urine Specific [place] 1.010 (1.005-1.035) Urine Protein Negative (NEGATIVE) Urine Glucose (UA) Negative (NEGATIVE) Urine Ketones Negative (NEGATIVE) Urine Blood 1+ (NEGATIVE) H Urine Nitrite Negative (NEGATIVE) Urine Bilirubin Negative (NEGATIVE) Urine Urobilinogen Normal MG/DL (0.0-1.0) Urine Leukocyte Esterase 2+ (NEGATIVE) H Urine RBC 2-4 /HPF (0 - 2) H Urine WBC 10-15 /HPF (0 - 2) H Urine Squamous Epithelial Cells Few /LPF (NONE/OCC) Urine Bacteria Moderate /HPF (NONE) H White Blood Count 5.6 K/UL (4.8-10.8) Red Blood Count 4.63 M/UL (4.20-5.40) Hemoglobin 11.8 G/DL (12.0-16.0) L Hematocrit 38.4 % (37.0-47.0) Mean Corpuscular Volume 83 FL (80-99) Mean Corpuscular Hemoglobin 25.5 PG (27.0-31.0) L Mean Corpuscular Hemoglobin Concent 30.7 G/DL (32.0-36.0) L Red Cell Distribution Width 20.2 % (11.6-14.8) H Platelet Count 215 K/UL (150-450) Mean Platelet Volume 8.2 FL (6.5-10.1) Neutrophils (%) (Auto) 32.0 % (45.0-75.0) L Lymphocytes (%) (Auto) 51.1 % (20.0-45.0) H Monocytes (%) (Auto) 5.3 % (1.0-10.0) Eosinophils (%) (Auto) 9.4 % (0.0-3.0) H Basophils (%) (Auto) 2.2 % (0.0-2.0) H Prothrombin Time 10.1 SEC (9.30-11.50) Prothromb Time International Ratio 0.9 (0.9-1.1) Activated Partial Thromboplast Time 29 SEC (23-33) Sodium Level 142 MMOL/L (136-145) Potassium Level 4.0 MMOL/L (3.5-5.1) Chloride Level 106 MMOL/L (98-107) Carbon Dioxide Level 27 MMOL/L (21-32) Anion Gap 9 mmol/L (5-15) Blood Urea Nitrogen 11 mg/dL (7-18) Creatinine 1.1 MG/DL (0.55-1.30) Estimat Glomerular Filtration Rate 57.2 mL/min (>60) Glucose Level 114 MG/DL (74-106) H Calcium Level 8.9 MG/DL (8.5-10.1) Total Bilirubin 0.3 MG/DL (0.2-1.0) Aspartate Amino Transf (AST/SGOT) < 5 U/L (15-37) L Alanine Aminotransferase (ALT/SGPT) 11 U/L (12-78) L Alkaline Phosphatase 131 U/L (46-116) H Total Creatine Kinase 123 U/L (26-308) Troponin I 0.001 ng/mL (0.000-0.056) Pro-B-Type Natriuretic Peptide 318 pg/mL (0-125) H Total Protein 8.2 G/DL (6.4-8.2) Albumin 3.7 G/DL (3.4-5.0) Globulin 4.5 g/dL Albumin/Globulin Ratio 0.8 (1.0-2.7) L Height (Feet): 5 Height (Inches): 1.00 Weight (Pounds): 120 Medications Current Medications Medications (Trade) Dose Ordered Sig/Sergio Route PRN Reason Start Time Stop Time Status Last Admin Dose Admin Levofloxacin 150 ml @ 100 mls/hr NOW ONCE IVPB 08/24/19 23:30 08/25/19 00:59 Sodium Chloride 550 ml @ 100 mls/hr Q5H30M IV 08/24/19 23:30 09/23/19 23:29 Assessment/Plan Assessment/Plan: 84 F with HLD, HTN, DM, GERD p/w acute onset of lightheadedness. Intial medical work up consistent with hypertensive urgency. #Hypertensive urgency #Hx of essential hypertension -BP: 189/86 mmHg on arrival -Home medications resumed: Clonidine 0.1 mg Q 12H, Lasix 20 mg QD, Losartan 25 mg QD, -Keep SBP<140 mmHg -Continue to monitor. -Given multiple cardiovascular comorbidities (Including HLD, HTN, HLD), will obtain cardiology consult for any additional recommendations. #Hyperlipidemia: -Resume home statin and Zocor. #Non-insulin dependant type II DM: -Patient refuses insulin; Will resume home metformin. -Continue to check glc TID -Diabetic diet. #Hypothyroidism: -Resume home Levothyroxine. #GERD: -Resume home Omeprazole. #COPD: -Resume home PRN Albuterol 74 minutes was spent on this patient's case, counseling and care coordination. Case discussed with patient and RN at the bedside. Case discussed with cardiology attending MD on the phone. Lenny Barry M.D. August 24, 2019 23:26
[2019-08-24] MEDS ORDERED: Sodium Chloride 550 ML IV SCH (23:30)
--- NOTE | 2019-08-24 23:40 | NUR ---
ED Nurse Note: Placed call to pt son :Joey at [phone], pt states ok to inform of her admission and give updated info, son is aware, pt to be admitted.
[2019-08-25] VITALS (11 sets, daily range): BP systolic 114–192; BP diastolic 40–100
--- NOTE | 2019-08-25 01:25 | NUR ---
ED Nurse Note: Pt returned from imaging, remains awake and alert, continues to deny6 having chest pain or any pain, states dizziness remains but is less, IV site patent, pt replaced on monitoring, pt using bedside commode without complications, pt skin assessed and intact and patent, pt being preapred for hospital admission, waiting for room placement, pt b/p also continues to fluctuate, is aware and meds ordered as needed.
--- NOTE | 2019-08-25 02:00 | NUR ---
ED Nurse Note: Pt has room for admission, b/p has increased, pt medicated, will monitor for effectiveness and send to floor bed for admit when b/p is wnl. pt continues to deny having chest pain or any pain, no sob noted at rest, mildly on exertion.
--- NOTE | 2019-08-25 03:05 | NUR ---
ED Nurse Note: Meds given for b/p effective, pt now being admitted, report called to floor nurse REYMUNDO Rhodes, pt being taken to unit via gurney and monitoring protocols, pt is awake and alert, has all belongings, denies pain or any acute distress.
--- NOTE | 2019-08-25 03:40 | NUR ---
NURSE NOTES: Received report from Kelsey Burkett RN. Pt sitting up in a gurney on 2 L NC, RR 34, expiratory wheezing heard in upper lobes, diminished sounds in lower lung bases no c/o pain, no SOB, alert and oriented x4,Bed is in lowest position, call light within reach, bedside commode at bedside, bed alarm on, told pt to use call light to ambulate to the assistance as needed. Pt verbalized understanding. Oriented to room and unit, campus monitor placed showing NSR
[2019-08-25] MEDS ORDERED: Albuterol/Ipratropium 3ml neb HHN PRN (03:45)
[2019-08-25] MEDS: Losartan 25mg tab ORAL SCH (05:30)
[2019-08-25] MEDS ORDERED: NovoLOG Insulin Flexpen SUBQ SCH (06:30)
[2019-08-25] MEDS ORDERED: Levothyroxine 25mcg tab ORAL SCH (06:30)
[2019-08-25] MEDS ORDERED: Losartan 25mg tab ORAL SCH ×2 (07:30→09:00)
--- NOTE | 2019-08-25 08:19 | NUR ---
HAND-OFF: Report given to REYMUNDO Schroeder.
--- NOTE | 2019-08-25 08:20 | NUR ---
NURSE NOTES: Received report from Jannette Nelson RN. Patient still being admitted, Patient laying on right side, on 2 liters nasal cannula, no c/o pain, no SOB, alert to name, responds to questions, bed in lowest position, call light iwthin reach, bedside commode at bedside.
[2019-08-25] MEDS: Aspirin EC 81mg tab ORAL SCH (08:27)
[2019-08-25] MEDS: Vitamin D 1000 IU Tab ORAL SCH (08:28)
[2019-08-25] MEDS: BusPIRone 5mg Tab ORAL SCH ×2 (08:50→17:43)
[2019-08-25] MEDS ORDERED: metFORMIN 500mg tab ORAL SCH ×2 (09:00→18:00)
[2019-08-25] MEDS: Albuterol/Ipratropium 3ml neb HHN SCH (09:00)
[2019-08-25] MEDS ORDERED: Bactrim-DS 1 tab ORAL SCH (09:00)
--- NOTE | 2019-08-25 12:54 | Infectious Diseases Prog Note ---
Assessment/Plan Assessment/Plan Full consult dictated; A) 1) uti 2) pnh noted 3) allergies - pcn P) 1) aztreonam, bactrim 2) f/u on urine culture 3) monitor labs 4) will f/u Subjective Allergies: Coded Allergies: PENICILLIN V (Verified Allergy, Severe, 08/26/13) PENICILLINS (Unverified Allergy, Unknown, 06/26/19) Objective Vital Signs Last 24 Hour Vital Signs Date Time Temp Pulse Resp B/P (MAP) Pulse Ox O2 Delivery O2 Flow Rate FiO2 08/25/19 12:00 66 08/25/19 09:00 Nasal Cannula 2.0 08/25/19 08:00 78 08/25/19 08:00 98.4 78 19 114/40 (64) 98 08/25/19 07:30 114/40 08/25/19 07:30 114/40 08/25/19 06:00 24 08/25/19 05:45 140/91 08/25/19 05:30 140/91 08/25/19 04:00 97.7 95 30 140/91 (107) 95 08/25/19 03:44 89 08/25/19 03:15 98.2 61 18 151/86 97 Room Air 08/25/19 03:00 98.2 61 18 151/86 97 Room Air 08/25/19 02:45 98.2 64 18 175/85 97 Room Air 08/25/19 02:15 98.2 68 22 172/72 96 Room Air 08/25/19 02:00 98.2 68 22 189/95 96 Room Air 08/25/19 01:52 183/86 08/25/19 01:00 98.2 68 22 183/86 96 Room Air 08/25/19 00:00 98.2 68 22 192/75 96 Room Air 08/24/19 23:13 211/92 08/24/19 23:00 98.2 68 22 199/83 96 Room Air 08/24/19 22:27 208/88 08/24/19 22:20 98.2 64 22 203/88 97 Room Air 08/24/19 22:00 98.2 64 22 145/98 97 Room Air 08/24/19 21:50 78 16 Room Air 08/24/19 21:33 98.2 78 16 200/96 (130) 92 Room Air Height (Feet): 5 Height (Inches): 1.00 Weight (Pounds): 114 Laboratory Tests Test 08/24/19 21:45 08/24/19 22:00 Urine Color Pale yellow Urine Appearance Slightly cloudy Urine pH 5 (4.5-8.0) Urine Specific [place] 1.010 (1.005-1.035) Urine Protein Negative (NEGATIVE) Urine Glucose (UA) Negative (NEGATIVE) Urine Ketones Negative (NEGATIVE) Urine Blood 1+ (NEGATIVE) H Urine Nitrite Negative (NEGATIVE) Urine Bilirubin Negative (NEGATIVE) Urine Urobilinogen Normal MG/DL (0.0-1.0) Urine Leukocyte Esterase 2+ (NEGATIVE) H Urine RBC 2-4 /HPF (0 - 2) H Urine WBC 10-15 /HPF (0 - 2) H Urine Squamous Epithelial Cells Few /LPF (NONE/OCC) Urine Bacteria Moderate /HPF (NONE) H White Blood Count 5.6 K/UL (4.8-10.8) Red Blood Count 4.63 M/UL (4.20-5.40) Hemoglobin 11.8 G/DL (12.0-16.0) L Hematocrit 38.4 % (37.0-47.0) Mean Corpuscular Volume 83 FL (80-99) Mean Corpuscular Hemoglobin 25.5 PG (27.0-31.0) L Mean Corpuscular Hemoglobin Concent 30.7 G/DL (32.0-36.0) L Red Cell Distribution Width 20.2 % (11.6-14.8) H Platelet Count 215 K/UL (150-450) Mean Platelet Volume 8.2 FL (6.5-10.1) Neutrophils (%) (Auto) 32.0 % (45.0-75.0) L Lymphocytes (%) (Auto) 51.1 % (20.0-45.0) H Monocytes (%) (Auto) 5.3 % (1.0-10.0) Eosinophils (%) (Auto) 9.4 % (0.0-3.0) H Basophils (%) (Auto) 2.2 % (0.0-2.0) H Prothrombin Time 10.1 SEC (9.30-11.50) Prothromb Time International Ratio 0.9 (0.9-1.1) Activated Partial Thromboplast Time 29 SEC (23-33) Sodium Level 142 MMOL/L (136-145) Potassium Level 4.0 MMOL/L (3.5-5.1) Chloride Level 106 MMOL/L (98-107) Carbon Dioxide Level 27 MMOL/L (21-32) Anion Gap 9 mmol/L (5-15) Blood Urea Nitrogen 11 mg/dL (7-18) Creatinine 1.1 MG/DL (0.55-1.30) Estimat Glomerular Filtration Rate 57.2 mL/min (>60) Glucose Level 114 MG/DL (74-106) H Calcium Level 8.9 MG/DL (8.5-10.1) Total Bilirubin 0.3 MG/DL (0.2-1.0) Aspartate Amino Transf (AST/SGOT) < 5 U/L (15-37) L Alanine Aminotransferase (ALT/SGPT) 11 U/L (12-78) L Alkaline Phosphatase 131 U/L (46-116) H Total Creatine Kinase 123 U/L (26-308) Troponin I 0.001 ng/mL (0.000-0.056) Pro-B-Type Natriuretic Peptide 318 pg/mL (0-125) H Total Protein 8.2 G/DL (6.4-8.2) Albumin 3.7 G/DL (3.4-5.0) Globulin 4.5 g/dL Albumin/Globulin Ratio 0.8 (1.0-2.7) L Current Medications Medications (Trade) Dose Ordered Sig/Sergio Route PRN Reason Start Time Stop Time Status Last Admin Dose Admin Albuterol/ Ipratropium (Albuterol/ Ipratropium) 3 ml DAILY HHN 08/25/19 09:00 08/30/19 08:59 Albuterol/ Ipratropium (Albuterol/ Ipratropium) 3 ml Q6HRT PRN HHN Shortness of Breath 08/25/19 03:45 08/30/19 03:44 Aspirin (Ecotrin) 81 mg DAILY ORAL 08/25/19 09:00 10/09/19 08:59 08/25/19 08:27 Buspirone HCl (Buspar) 7.5 mg BID ORAL 08/25/19 09:00 8/15/20 08:59 08/25/19 08:50 Clonidine HCl (Catapres Tab) 0.1 mg EVERY 12 HOURS ORAL 08/25/19 21:00 11/23/19 08:59 Dextrose (Dextrose 50%) 25 ml Q30M PRN IV Hypoglycemia 08/25/19 03:45 11/23/19 03:44 Dextrose (Dextrose 50%) 50 ml Q30M PRN IV Hypoglycemia 08/25/19 03:45 11/23/19 03:44 Escitalopram Oxalate (Lexapro) 10 mg DAILY ORAL 08/25/19 09:00 09/24/19 08:59 08/25/19 08:27 Levothyroxine Sodium (Synthroid) 50 mcg DAILY@0630 ORAL 08/25/19 06:30 09/24/19 06:29 08/25/19 06:30 Losartan Potassium (Cozaar) 25 mg DAILY ORAL 08/26/19 09:00 09/24/19 08:59 Ondansetron HCl (Zofran) 4 mg Q6H PRN ORAL Nausea & Vomiting 08/25/19 03:45 09/24/19 03:44 Pantoprazole (Protonix) 40 mg DAILY ORAL 08/25/19 09:00 09/24/19 08:59 08/25/19 08:27 Pravastatin Sodium (Pravachol) 20 mg BEDTIME ORAL 08/25/19 21:00 09/24/19 20:59 Quetiapine Fumarate (SEROqueL) 50 mg QHS ORAL 08/25/19 21:00 10/09/19 08:59 Trimethoprim/ Sulfamethoxazole (Bactrim-DS) 1 tab DAILY ORAL 08/26/19 09:00 09/03/19 09:01 Vitamin D (Vitamin D) 1,000 intlu DAILY ORAL 08/25/19 09:00 09/24/19 08:59 08/25/19 08:28 Roslyn Rivera MD August 25, 2019 12:54
--- NOTE | 2019-08-25 13:48 | Cardiac Electrophysiology PN ---
Subjective Subjective [id number] Objective Last 24 Hour Vital Signs Date Time Temp Pulse Resp B/P (MAP) Pulse Ox O2 Delivery O2 Flow Rate FiO2 08/25/19 12:00 97.7 70 20 147/99 (115) 97 08/25/19 12:00 66 08/25/19 09:00 Nasal Cannula 2.0 08/25/19 08:00 78 08/25/19 08:00 98.4 78 19 114/40 (64) 98 08/25/19 07:30 114/40 08/25/19 07:30 114/40 08/25/19 06:00 24 08/25/19 05:45 140/91 08/25/19 05:30 140/91 08/25/19 04:00 97.7 95 30 140/91 (107) 95 08/25/19 03:44 89 08/25/19 03:15 98.2 61 18 151/86 97 Room Air 08/25/19 03:00 98.2 61 18 151/86 97 Room Air 08/25/19 02:45 98.2 64 18 175/85 97 Room Air 08/25/19 02:15 98.2 68 22 172/72 96 Room Air 08/25/19 02:00 98.2 68 22 189/95 96 Room Air 08/25/19 01:52 183/86 08/25/19 01:00 98.2 68 22 183/86 96 Room Air 08/25/19 00:00 98.2 68 22 192/75 96 Room Air 08/24/19 23:13 211/92 08/24/19 23:00 98.2 68 22 199/83 96 Room Air 08/24/19 22:27 208/88 08/24/19 22:20 98.2 64 22 203/88 97 Room Air 08/24/19 22:00 98.2 64 22 145/98 97 Room Air 08/24/19 21:50 78 16 Room Air 08/24/19 21:33 98.2 78 16 200/96 (130) 92 Room Air Intake and Output 08/24/19 08/25/19 19:00 07:00 # Voids 1 Laboratory Tests Test 08/24/19 21:45 08/24/19 22:00 Urine Color Pale yellow Urine Appearance Slightly cloudy Urine pH 5 (4.5-8.0) Urine Specific [place] 1.010 (1.005-1.035) Urine Protein Negative (NEGATIVE) Urine Glucose (UA) Negative (NEGATIVE) Urine Ketones Negative (NEGATIVE) Urine Blood 1+ (NEGATIVE) H Urine Nitrite Negative (NEGATIVE) Urine Bilirubin Negative (NEGATIVE) Urine Urobilinogen Normal MG/DL (0.0-1.0) Urine Leukocyte Esterase 2+ (NEGATIVE) H Urine RBC 2-4 /HPF (0 - 2) H Urine WBC 10-15 /HPF (0 - 2) H Urine Squamous Epithelial Cells Few /LPF (NONE/OCC) Urine Bacteria Moderate /HPF (NONE) H White Blood Count 5.6 K/UL (4.8-10.8) Red Blood Count 4.63 M/UL (4.20-5.40) Hemoglobin 11.8 G/DL (12.0-16.0) L Hematocrit 38.4 % (37.0-47.0) Mean Corpuscular Volume 83 FL (80-99) Mean Corpuscular Hemoglobin 25.5 PG (27.0-31.0) L Mean Corpuscular Hemoglobin Concent 30.7 G/DL (32.0-36.0) L Red Cell Distribution Width 20.2 % (11.6-14.8) H Platelet Count 215 K/UL (150-450) Mean Platelet Volume 8.2 FL (6.5-10.1) Neutrophils (%) (Auto) 32.0 % (45.0-75.0) L Lymphocytes (%) (Auto) 51.1 % (20.0-45.0) H Monocytes (%) (Auto) 5.3 % (1.0-10.0) Eosinophils (%) (Auto) 9.4 % (0.0-3.0) H Basophils (%) (Auto) 2.2 % (0.0-2.0) H Prothrombin Time 10.1 SEC (9.30-11.50) Prothromb Time International Ratio 0.9 (0.9-1.1) Activated Partial Thromboplast Time 29 SEC (23-33) Sodium Level 142 MMOL/L (136-145) Potassium Level 4.0 MMOL/L (3.5-5.1) Chloride Level 106 MMOL/L (98-107) Carbon Dioxide Level 27 MMOL/L (21-32) Anion Gap 9 mmol/L (5-15) Blood Urea Nitrogen 11 mg/dL (7-18) Creatinine 1.1 MG/DL (0.55-1.30) Estimat Glomerular Filtration Rate 57.2 mL/min (>60) Glucose Level 114 MG/DL (74-106) H Calcium Level 8.9 MG/DL (8.5-10.1) Total Bilirubin 0.3 MG/DL (0.2-1.0) Aspartate Amino Transf (AST/SGOT) < 5 U/L (15-37) L Alanine Aminotransferase (ALT/SGPT) 11 U/L (12-78) L Alkaline Phosphatase 131 U/L (46-116) H Total Creatine Kinase 123 U/L (26-308) Troponin I 0.001 ng/mL (0.000-0.056) Pro-B-Type Natriuretic Peptide 318 pg/mL (0-125) H Total Protein 8.2 G/DL (6.4-8.2) Albumin 3.7 G/DL (3.4-5.0) Globulin 4.5 g/dL Albumin/Globulin Ratio 0.8 (1.0-2.7) L Bartolo Alston MD August 25, 2019 13:48
[2019-08-25] MEDS: Aztreonam Inj 1 GM in D5W 55 ML IVPB SCH ×2 (14:16→21:54)
--- NOTE | 2019-08-25 18:45 | Consultation ---
DATE OF CONSULTATION: 08/25/2019 CARDIOLOGY CONSULTATION CONSULTING PHYSICIAN: Bartolo Alston MD. REFERRING PHYSICIAN: Diamond Moreno MD. REASON FOR CONSULTATION: Hypertension. HISTORY OF PRESENT ILLNESS: Patient is an 84-year-old lady with history of hypertension, hyperlipidemia, COPD, gastroesophageal reflux disease, and hypothyroidism presented to the emergency room complaining of dizziness. Patient did not lose consciousness. The blood pressure at home was more than 200. Patient denies any chest pain or shortness of breath. No nausea, vomiting, or syncopal episodes. In the emergency room, patient's blood pressure was 190/90. CT of the head showed no acute abnormality. REVIEW OF SYSTEMS: Negative other than what is mentioned in the history of present illness. PAST MEDICAL HISTORY: As mentioned above. FAMILY HISTORY: Noncontributory. SOCIAL HISTORY: Lives at home. Does not smoke or drink alcohol. MEDICATIONS: Per reconciliation. PHYSICAL EXAMINATION: VITAL SIGNS: Show blood pressure of 147/99, pulse is 70, respirations 18, temperature 97.2. HEAD AND NECK: Showed no JVD. LUNGS: Clear. CARDIOVASCULAR: Regular S1 and S2 with no gallop or murmur. ABDOMEN: Soft. EXTREMITIES: No pitting edema. LABORATORY DATA: Labs show white count 5.3, hemoglobin 11.8, hematocrit 38.4, and platelet count of 215. Sodium 142, potassium 4.0, BUN of 11, creatinine 1.1, and glucose of 114. Troponin is negative. ASSESSMENT AND PLAN: 1. Accelerated hypertension. Blood pressure is better now. Continue Cozaar 25 mg daily and clonidine 0.1 mg bi.d. Patient is also on p.r.n. medication. 2. Hyperlipidemia, on Pravachol. 3. Dizziness. Head CT showed no acute intracranial abnormality. It is of note patient's EKG shows normal sinus rhythm with left ventricular hypertrophy, nonspecific ST wave abnormalities and echocardiogram is pending. 4. Urinary tract infection. Started on aztreonam by Dr. Rivera. 5. Hypothyroidism, on Synthroid. 6. COPD, on albuterol. Thank you very much for allowing me to participate in the care of this patient. Please do not hesitate to contact me for any questions regarding my evaluation. Bartolo Alston M.D. DR: LACEY JOB#: [id number] CC:
--- NOTE | 2019-08-25 19:18 | General Progress Note ---
Assessment/Plan Assessment/Plan: 84 F with HLD, HTN, DM, GERD p/w acute onset of lightheadedness. Intial medical work up consistent with hypertensive urgency. #Hypertensive urgency #Hx of essential hypertension -BP: 189/86 mmHg on arrival -Home medications resumed: Clonidine 0.1 mg Q 12H, Lasix 20 mg QD, Losartan 25 mg QD, -Keep SBP<140 mmHg -Continue to monitor. -Given multiple cardiovascular comorbidities (Including HLD, HTN, HLD), will obtain cardiology consult for any additional recommendations. #Urinary tract infection #Acute cystitis. Do not suspect pyelo - continue bactrim (patient with multiple drug allergies) - f/u urine culture - adjust abx based on sensitivities #Hyperlipidemia: -Resume home statin and Zocor. #Non-insulin dependant type II DM: -Patient refuses insulin; Will resume home metformin. -Continue to check glc TID -Diabetic diet. #Hypothyroidism: -Resume home Levothyroxine. #GERD: -Resume home Omeprazole. #COPD: -Resume home PRN Albuterol 40 minutes was spent on this patient's case, and 20 minutes spent counseling and care coordination. Case discussed with patient and RN at the bedside. Case discussed with cardiology, RN at bedside Subjective Date patient seen: August 25, 2019 Constitutional: Reports: weakness, other - fatigue Allergies: Coded Allergies: PENICILLIN V (Verified Allergy, Severe, 08/26/13) PENICILLINS (Unverified Allergy, Unknown, 06/26/19) All Systems: reviewed and negative except above - 12 point ROS Subjective Chart reviewed. Admitted for hypertension and UTI. No acute events overnight per nursing. Patient feels much better. BP better controlled. AVSS. NO fever, chills, back pain, nausea or vomiting Objective Last 24 Hour Vital Signs Date Time Temp Pulse Resp B/P (MAP) Pulse Ox O2 Delivery O2 Flow Rate FiO2 08/25/19 16:00 98.1 58 19 140/61 (87) 97 08/25/19 16:00 64 08/25/19 12:00 97.7 70 20 147/99 (115) 97 08/25/19 12:00 66 08/25/19 09:00 Nasal Cannula 2.0 08/25/19 08:00 78 08/25/19 08:00 98.4 78 19 114/40 (64) 98 08/25/19 07:30 114/40 08/25/19 07:30 114/40 08/25/19 06:00 24 08/25/19 05:45 140/91 08/25/19 05:30 140/91 08/25/19 04:00 97.7 95 30 140/91 (107) 95 08/25/19 03:44 89 08/25/19 03:15 98.2 61 18 151/86 97 Room Air 08/25/19 03:00 98.2 61 18 151/86 97 Room Air 08/25/19 02:45 98.2 64 18 175/85 97 Room Air 08/25/19 02:15 98.2 68 22 172/72 96 Room Air 08/25/19 02:00 98.2 68 22 189/95 96 Room Air 08/25/19 01:52 183/86 08/25/19 01:00 98.2 68 22 183/86 96 Room Air 08/25/19 00:00 98.2 68 22 192/75 96 Room Air 08/24/19 23:13 211/92 08/24/19 23:00 98.2 68 22 199/83 96 Room Air 08/24/19 22:27 208/88 08/24/19 22:20 98.2 64 22 203/88 97 Room Air 08/24/19 22:00 98.2 64 22 145/98 97 Room Air 08/24/19 21:50 78 16 Room Air 08/24/19 21:33 98.2 78 16 200/96 (130) 92 Room Air Intake and Output 08/24/19 08/25/19 19:00 07:00 # Voids 1 Laboratory Tests 08/24/19 21:45: Urine Color Pale yellow, Urine Appearance Slightly cloudy, Urine pH 5, Urine Specific [place] 1.010, Urine Protein Negative, Urine Glucose (UA) Negative, Urine Ketones Negative, Urine Blood 1+H, Urine Nitrite Negative, Urine Bilirubin Negative, Urine Urobilinogen Normal, Urine Leukocyte Esterase 2+H, Urine RBC 2-4H, Urine WBC 10-15H, Urine Squamous Epithelial Cells Few, Urine Bacteria ModerateH 08/24/19 22:00: White Blood Count 5.6, Red Blood Count 4.63, Hemoglobin 11.8L, Hematocrit 38.4, Mean Corpuscular Volume 83, Mean Corpuscular Hemoglobin 25.5L, Mean Corpuscular Hemoglobin Concent 30.7L, Red Cell Distribution Width 20.2H, Platelet Count 215 , Mean Platelet Volume 8.2, Neutrophils (%) (Auto) 32.0L, Lymphocytes (%) (Auto ) 51.1H, Monocytes (%) (Auto) 5.3, Eosinophils (%) (Auto) 9.4H, Basophils (%) ( Auto) 2.2H, Prothrombin Time 10.1, Prothromb Time International Ratio 0.9, Activated Partial Thromboplast Time 29, Sodium Level 142, Potassium Level 4.0, Chloride Level 106, Carbon Dioxide Level 27, Anion Gap 9, Blood Urea Nitrogen 11 , Creatinine 1.1, Estimat Glomerular Filtration Rate 57.2, Glucose Level 114H, Calcium Level 8.9, Total Bilirubin 0.3, Aspartate Amino Transf (AST/SGOT) < 5L, Alanine Aminotransferase (ALT/SGPT) 11L, Alkaline Phosphatase 131H, Total Creatine Kinase 123, Troponin I 0.001, Pro-B-Type Natriuretic Peptide 318H, Total Protein 8.2, Albumin 3.7, Globulin 4.5, Albumin/Globulin Ratio 0.8L Height (Feet): 5 Height (Inches): 1.00 Weight (Pounds): 114 General Appearance: WD/WN, no apparent distress EENT: PERRL/EOMI, normal ENT inspection Neck: non-tender, normal alignment Cardiovascular: normal peripheral pulses, normal rate, regular rhythm Respiratory/Chest: chest wall non-tender, lungs clear, normal breath sounds Abdomen: normal bowel sounds, non tender, soft, no organomegaly, no mass Extremities: normal range of motion, non-tender Edema: other - no LE edema bilaterally 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 August 25, 2019 19:18
--- NOTE | 2019-08-25 19:41 | NUR ---
NURSE NOTES: Received patient in bed, awake, alert, oriented x4, able to make her needs known, IV site is clean dry and intact. Patient is on 2 liters of oxygen, call light is within reach, bed is lowered, locked, alarm is on, will continue to monitor for comfort and safety.
--- NOTE | 2019-08-25 20:12 | NUR ---
HAND-OFF: Report given to Paula Mendoza RN. Patient sleeping in supine position, television on in room, on 2 liters nasal cannula, bed in lowest position, call light within reach, no c/o pain, no SOB, bedside commode at bedside, in no apparent distress.
[2019-08-25] MEDS: Heparin 5000 units/ml inj SUBQ SCH (21:56)
[2019-08-26] VITALS (7 sets, daily range): BP systolic 139–180; BP diastolic 72–99
[2019-08-26 06:00] LABS: BASOPHILS % (AUTO) 1.5 % (0.0-2.0); EOSINOPHILS % (AUTO) 9.1 % (0.0-3.0); HEMATOCRIT 34.9 % (37.0-47.0); HEMOGLOBIN 11.5 G/DL (12.0-16.0); LYMPHOCYTES % (AUTO) 49.1 % (20.0-45.0); MEAN CORPUSCULAR VOLUME 78 FL (80-99); MONOCYTES % (AUTO) 5.2 % (1.0-10.0); NEUTROPHILS % (AUTO) 35.1 % (45.0-75.0); PLATELET COUNT 197 K/UL (150-450); RED BLOOD COUNT 4.45 M/UL (4.20-5.40); RED CELL DISTRIBUTION WIDTH 17.5 % (11.6-14.8); WHITE BLOOD COUNT 5.4 K/UL (4.8-10.8)
[2019-08-26] MEDS: Aztreonam Inj 1 GM in D5W 55 ML IVPB SCH (06:01)
[2019-08-26 06:24] LABS: ALANINE AMINOTRANSFERASE 9 U/L (12-78); ALBUMIN 3.3 G/DL (3.4-5.0); ALBUMIN/GLOBULIN RATIO 0.8 (1.0-2.7); ALKALINE PHOSPHATASE 125 U/L (46-116); ANION GAP 11 mmol/L (5-15); ASPARTATE AMINO TRANSFERASE 13 U/L (15-37); BILIRUBIN,TOTAL 0.5 MG/DL (0.2-1.0); BLOOD UREA NITROGEN 18 mg/dL (7-18); CALCIUM 8.8 MG/DL (8.5-10.1); CARBON DIOXIDE 24 MMOL/L (21-32); CHLORIDE 106 MMOL/L (98-107); CREATININE 1.1 MG/DL (0.55-1.30); POTASSIUM 3.4 MMOL/L (3.5-5.1); SODIUM 141 MMOL/L (136-145)
--- NOTE | 2019-08-26 07:25 | NUR ---
HAND-OFF: Report given to Frandy DWYER.
--- NOTE | 2019-08-26 07:29 | NUR ---
NURSE NOTES: Received report from REYMUNDO Mitchell. Pt is awake and alert. pt has NC 2LMP. pt has intact iv access RAC 20G SL. Pt is on continues heart monitoring. no complain of pain at this moment. Dr Moreno is aware about K 3.4, waiting to call back. all needs attended, bed is locked and is in the lowest position. call light within easy reach. will continue to monitor.
--- NOTE | 2019-08-26 08:55 | Cardiac Electrophysiology PN ---
Assessment/Plan Assessment/Plan 1. Accelerated hypertension. Blood pressure is better on Cozaar 25 mg daily, clonidine 0.1 mg bid and p.r.n. medication. 2. Hyperlipidemia, on Pravachol. 3. Dizziness. Head CT showed no acute intracranial abnormality. EKG shows normal sinus rhythm with left ventricular hypertrophy, nonspecific ST wave abnormalities and echocardiogram EF 55% 4. Urinary tract infection. On aztreonam by Dr. Rivera. 5. Hypothyroidism, on Synthroid. 6. COPD, on albuterol. Subjective Subjective Felling better and BP is better. No Cp or SOB in SR Objective Last 24 Hour Vital Signs Date Time Temp Pulse Resp B/P (MAP) Pulse Ox O2 Delivery O2 Flow Rate FiO2 08/26/19 04:00 97.9 67 18 148/77 (100) 97 08/26/19 00:00 98.7 87 18 139/74 (95) 98 08/26/19 00:00 65 08/25/19 21:02 Nasal Cannula 2.0 08/25/19 20:52 163/100 08/25/19 20:00 98.1 80 20 163/100 (121) 98 08/25/19 20:00 76 08/25/19 16:00 98.1 58 19 140/61 (87) 97 08/25/19 16:00 64 08/25/19 12:00 97.7 70 20 147/99 (115) 97 08/25/19 12:00 66 08/25/19 09:00 Nasal Cannula 2.0 Intake and Output 08/25/19 08/26/19 19:00 07:00 Intake Total 315 ml Output Total 1200 ml Balance -885 ml Intake Oral 260 ml IV Total 55 ml Output Urine Total 1200 ml # Voids 3 Laboratory Tests Test 08/26/19 04:30 White Blood Count 5.4 K/UL (4.8-10.8) Red Blood Count 4.45 M/UL (4.20-5.40) Hemoglobin 11.5 G/DL (12.0-16.0) L Hematocrit 34.9 % (37.0-47.0) L Mean Corpuscular Volume 78 FL (80-99) L Mean Corpuscular Hemoglobin 25.7 PG (27.0-31.0) L Mean Corpuscular Hemoglobin Concent 32.9 G/DL (32.0-36.0) Red Cell Distribution Width 17.5 % (11.6-14.8) H Platelet Count 197 K/UL (150-450) Mean Platelet Volume 6.7 FL (6.5-10.1) Neutrophils (%) (Auto) 35.1 % (45.0-75.0) L Lymphocytes (%) (Auto) 49.1 % (20.0-45.0) H Monocytes (%) (Auto) 5.2 % (1.0-10.0) Eosinophils (%) (Auto) 9.1 % (0.0-3.0) H Basophils (%) (Auto) 1.5 % (0.0-2.0) Sodium Level 141 MMOL/L (136-145) Potassium Level 3.4 MMOL/L (3.5-5.1) L Chloride Level 106 MMOL/L (98-107) Carbon Dioxide Level 24 MMOL/L (21-32) Anion Gap 11 mmol/L (5-15) Blood Urea Nitrogen 18 mg/dL (7-18) Creatinine 1.1 MG/DL (0.55-1.30) Estimat Glomerular Filtration Rate 57.2 mL/min (>60) Glucose Level 100 MG/DL (74-106) Calcium Level 8.8 MG/DL (8.5-10.1) Total Bilirubin 0.5 MG/DL (0.2-1.0) Aspartate Amino Transf (AST/SGOT) 13 U/L (15-37) L Alanine Aminotransferase (ALT/SGPT) 9 U/L (12-78) L Alkaline Phosphatase 125 U/L (46-116) H Troponin I 0.002 ng/mL (0.000-0.056) Total Protein 7.4 G/DL (6.4-8.2) Albumin 3.3 G/DL (3.4-5.0) L Globulin 4.1 g/dL Albumin/Globulin Ratio 0.8 (1.0-2.7) L Microbiology Date/Time Source Procedure Growth Status 08/24/19 21:45 Urine,Clean Catch Urine Culture - Preliminary Gram Negative Bacillus 1 Resulted Objective HEAD AND NECK: No JVD. LUNGS: Clear. CARDIOVASCULAR: Regular S1 and S2 with no gallop or murmur. ABDOMEN: Soft. EXTREMITIES: No pitting edema. ToluieBartolo MD August 26, 2019 08:55
--- NOTE | 2019-08-26 09:00 | NUR ---
NURSE NOTES: Dr Lay visited pt and is aware about K 3.4 and other lab results and V/S, no new order to RN. Will continue to monitor.
[2019-08-26] MEDS: BusPIRone 5mg Tab ORAL SCH ×2 (09:07→17:12)
[2019-08-26] MEDS: Bactrim-DS 1 tab ORAL SCH (09:07)
[2019-08-26] MEDS: Heparin 5000 units/ml inj SUBQ SCH ×2 (09:07→21:00)
[2019-08-26] MEDS: Aspirin EC 81mg tab ORAL SCH (09:07)
[2019-08-26] MEDS: Losartan 25mg tab ORAL SCH (09:08)
[2019-08-26] MEDS: Vitamin D 1000 IU Tab ORAL SCH (09:08)
--- NOTE | 2019-08-26 09:09 | NUR ---
NURSE NOTES: 10mg hydralazine is wasted in med room.
--- NOTE | 2019-08-26 09:10 | NUR ---
NURSE NOTES: pt has nose bleeding, heparin not administered and wasted in med room with witness REYMUNDO Serrano, Dr Lay is aware, no new order to RN. Will continue to monitor.
[2019-08-26] MEDS: Albuterol/Ipratropium 3ml neb HHN SCH (12:00)
--- NOTE | 2019-08-26 12:16 | General Progress Note ---
Assessment/Plan Assessment/Plan: 84 F with HLD, HTN, DM, GERD p/w acute onset of lightheadedness secondary to hypertensive urgency. #Hypertensive urgency, variable control #Hx of essential hypertension -Cont Clonidine 0.1 mg Q 12H, Lasix 20 mg QD, Losartan 25 mg QD, may need increase losartan -Keep SBP<140 mmHg -Continue to monitor. -Cardiology following #Urinary tract infection #Acute cystitis, gram neg in urine culture - continue Bactrim (patient with multiple drug allergies) - f/u urine culture - adjust abx based on sensitivities #Hyperlipidemia: -Resume home statin and Zocor. #Non-insulin dependant type II DM: -Patient refuses insulin; cont metformin -Continue to check glc TID -Diabetic diet. #Hypothyroidism: -Cont home Levothyroxine. #GERD: -Cont home Omeprazole. #COPD: -Cont home PRN Albuterol 35 minutes was spent on this patient's case, and 20 minutes spent counseling and care coordination. Case discussed with patient and RN at the bedside. Case discussed with cardiology, RN at bedside I spent an additional 35minutes on review of medical records including prior hospital records, consult notes, progress notes, procedures, imaging, labs, hemodynamics, and other clinical documentation. ~ Subjective Date patient seen: August 26, 2019 Time patient seen: 11:02 Constitutional: Denies: chills, fever Cardiovascular: Denies: chest pain, edema Respiratory: Denies: cough, shortness of breath Gastrointestinal/Abdominal: Denies: abdominal pain Allergies: Coded Allergies: PENICILLIN V (Verified Allergy, Severe, 08/26/13) PENICILLINS (Unverified Allergy, Unknown, 06/26/19) Subjective Follow up hypertensive urgency, feels better today. Denies any headache, visual disturbance Variable BP control. Objective Last 24 Hour Vital Signs Date Time Temp Pulse Resp B/P (MAP) Pulse Ox O2 Delivery O2 Flow Rate FiO2 08/26/19 11:58 97.8 86 16 151/83 (105) 98 08/26/19 09:08 180/99 08/26/19 09:08 180/99 08/26/19 09:08 180/99 08/26/19 09:00 Nasal Cannula 2.0 08/26/19 08:00 98.1 77 16 180/99 (126) 99 08/26/19 07:42 68 08/26/19 04:00 97.9 67 18 148/77 (100) 97 08/26/19 00:00 98.7 87 18 139/74 (95) 98 08/26/19 00:00 65 08/25/19 21:02 Nasal Cannula 2.0 08/25/19 20:52 163/100 08/25/19 20:00 98.1 80 20 163/100 (121) 98 08/25/19 20:00 76 08/25/19 16:00 98.1 58 19 140/61 (87) 97 08/25/19 16:00 64 Intake and Output 08/25/19 08/26/19 19:00 07:00 Intake Total 315 ml Output Total 1200 ml Balance -885 ml Intake Oral 260 ml IV Total 55 ml Output Urine Total 1200 ml # Voids 3 Laboratory Tests 08/26/19 04:30: White Blood Count 5.4, Red Blood Count 4.45, Hemoglobin 11.5L, Hematocrit 34.9L , Mean Corpuscular Volume 78L, Mean Corpuscular Hemoglobin 25.7L, Mean Corpuscular Hemoglobin Concent 32.9, Red Cell Distribution Width 17.5H, Platelet Count 197, Mean Platelet Volume 6.7, Neutrophils (%) (Auto) 35.1L, Lymphocytes (%) (Auto) 49.1H, Monocytes (%) (Auto) 5.2, Eosinophils (%) (Auto) 9.1H, Basophils (%) (Auto) 1.5, Sodium Level 141, Potassium Level 3.4L, Chloride Level 106, Carbon Dioxide Level 24, Anion Gap 11, Blood Urea Nitrogen 18, Creatinine 1.1, Estimat Glomerular Filtration Rate 57.2, Glucose Level 100, Calcium Level 8.8, Total Bilirubin 0.5, Aspartate Amino Transf (AST/SGOT) 13L, Alanine Aminotransferase (ALT/SGPT) 9L, Alkaline Phosphatase 125H, Troponin I 0.002, Total Protein 7.4, Albumin 3.3L, Globulin 4.1, Albumin/Globulin Ratio 0.8L Height (Feet): 5 Height (Inches): 1.00 Weight (Pounds): 114 Neck: normal alignment, supple Cardiovascular: normal rate, regular rhythm Respiratory/Chest: lungs clear, normal breath sounds Abdomen: non tender, soft Molazadeh-Yazdi,Bjorn MD August 26, 2019 12:16
--- NOTE | 2019-08-26 13:15 | NUR ---
CASE MANAGEMENT:REVIEW 84YR OLD FEMALE PRESENTED TO ER CC: DIZZINESS. BLURRY VISION. UNSTEADY GAIT SI: HTN URGENCY. DIPLOPIA. RENAL INSUFF. UTI 98.2 78 16 200/96 92% ON RA GLUCOSE+114 BNP+318 IS: IV HYDRALAZINE X1 IV LEVAQUIN X1 CLONIDINE PO X2 URINE CX CT HEAD CHEST XRAY : TO TELEMETRY DCP: FROM HOME PLAN: NEURO CHECKS PT EVAL
--- NOTE | 2019-08-26 13:16 | NUR ---
NURSE NOTES: 0.5 mg Aztreonam is wasted in med room.
[2019-08-26] MEDS ORDERED: Aztreonam Inj 0.5 GM in D5W 55 ML IVPB SCH ×2 (14:00→23:00)
--- NOTE | 2019-08-26 17:23 | NUR ---
NURSE NOTES: 10mg hydralazine is wasted in med room.
--- NOTE | 2019-08-26 17:37 | NUR ---
NURSE NOTES: pt stated she has double vision, Dr Lay is aware ordered stat head ct no contrast, noted and carried out. will continue to monitor.
--- NOTE | 2019-08-26 18:22 | Diagnostic Imaging Report ---
EXAM: CT Head Without Intravenous Contrast CLINICAL HISTORY: BLD TECHNIQUE: Axial computed tomography images of the head/brain without intravenous contrast. CTDI is 53.4 mGy and DLP is 923.3 mGy-cm. One or more of the following dose reduction techniques were used: automated exposure control, adjustment of the mA and/or kV according to patient size, use of iterative reconstruction technique. COMPARISON: 08/24/19. FINDINGS: There is no intracranial hemorrhage or mass effect. No clear acute large vessel territory infarction. Involutional and microvascular ischemic changes. Atherosclerosis of skull base arteries. The calvarium is intact. No mastoid or paranasal sinus effusion. IMPRESSION: No acute intracranial process. Redemonstrated involutional and microvascular ischemic changes.
--- NOTE | 2019-08-26 19:10 | NUR ---
NURSE NOTES: Received patient from REYMUNDO Wise. Patient awake, alert, and coherent. Able to verbalize needs. Currently complaining of double vision, but MD aware. On hypertensive medications, both around the clock and PRN; will administer as prescribed. IV site intact and asymptomatic; iv site flushed. Nurse endorsed 1 episode of epistaxis during AM shift, will continue to monitor for any other signs of acute bleeding. skin intact. Bed in lowest position, brakes engaged. Bed rails raised x2. Call light placed within reach. Will continue to monitor.
--- NOTE | 2019-08-26 19:30 | NUR ---
HAND-OFF: Report given to Reyna DWYER. Pt is awake and stable.
--- NOTE | 2019-08-26 20:28 | Infectious Diseases Prog Note ---
Assessment/Plan Assessment/Plan A) 1) gram neg complicated uti 2) pnh noted 3) allergies - pcn P) 1) aztreonam, bactrim 2) f/u on urine culture 3) monitor labs 4) will f/u Subjective Constitutional: Denies: fever Respiratory: Denies: shortness of breath Cardiovascular: Denies: chest pain Gastrointestinal/Abdominal: Denies: nausea, vomiting, diarrhea Genitourinary: Reports: other - no felix Neurologic: Denies: headache Psychiatric: Denies: depression Skin: Denies: rash Hematologic: Denies: bleeding Musculoskeletal: Denies: pain Allergies: Coded Allergies: PENICILLIN V (Verified Allergy, Severe, 08/26/13) PENICILLINS (Unverified Allergy, Unknown, 06/26/19) Objective Vital Signs Last 24 Hour Vital Signs Date Time Temp Pulse Resp B/P (MAP) Pulse Ox O2 Delivery O2 Flow Rate FiO2 08/26/19 18:00 161/72 (101) 08/26/19 17:23 172/86 08/26/19 16:00 98.4 94 17 165/85 (111) 98 08/26/19 15:09 82 08/26/19 12:00 89 20 100 Nasal Cannula 2.0 28 87 18 98 08/26/19 11:58 97.8 86 16 151/83 (105) 98 08/26/19 11:48 90 08/26/19 09:08 180/99 08/26/19 09:08 180/99 08/26/19 09:08 180/99 08/26/19 09:00 Nasal Cannula 2.0 08/26/19 08:00 98.1 77 16 180/99 (126) 99 08/26/19 07:42 68 08/26/19 04:00 97.9 67 18 148/77 (100) 97 08/26/19 00:00 98.7 87 18 139/74 (95) 98 08/26/19 00:00 65 08/25/19 21:02 Nasal Cannula 2.0 08/25/19 20:52 163/100 Height (Feet): 5 Height (Inches): 1.00 Weight (Pounds): 114 HEENT: normocephalic, mucous membranes moist Respiratory/Chest: lungs clear, normal breath sounds, no respiratory distress Cardiovascular: normal rate, regular rhythm, no gallop/murmur Abdomen: normal bowel sounds, soft, non tender, no organomegaly, non distended Microbiology Date/Time Source Procedure Growth Status 08/24/19 21:45 Urine,Clean Catch Urine Culture - Preliminary Gram Negative Bacillus 1 Resulted Laboratory Tests Test 08/26/19 04:30 White Blood Count 5.4 K/UL (4.8-10.8) Red Blood Count 4.45 M/UL (4.20-5.40) Hemoglobin 11.5 G/DL (12.0-16.0) L Hematocrit 34.9 % (37.0-47.0) L Mean Corpuscular Volume 78 FL (80-99) L Mean Corpuscular Hemoglobin 25.7 PG (27.0-31.0) L Mean Corpuscular Hemoglobin Concent 32.9 G/DL (32.0-36.0) Red Cell Distribution Width 17.5 % (11.6-14.8) H Platelet Count 197 K/UL (150-450) Mean Platelet Volume 6.7 FL (6.5-10.1) Neutrophils (%) (Auto) 35.1 % (45.0-75.0) L Lymphocytes (%) (Auto) 49.1 % (20.0-45.0) H Monocytes (%) (Auto) 5.2 % (1.0-10.0) Eosinophils (%) (Auto) 9.1 % (0.0-3.0) H Basophils (%) (Auto) 1.5 % (0.0-2.0) Sodium Level 141 MMOL/L (136-145) Potassium Level 3.4 MMOL/L (3.5-5.1) L Chloride Level 106 MMOL/L (98-107) Carbon Dioxide Level 24 MMOL/L (21-32) Anion Gap 11 mmol/L (5-15) Blood Urea Nitrogen 18 mg/dL (7-18) Creatinine 1.1 MG/DL (0.55-1.30) Estimat Glomerular Filtration Rate 57.2 mL/min (>60) Glucose Level 100 MG/DL (74-106) Calcium Level 8.8 MG/DL (8.5-10.1) Total Bilirubin 0.5 MG/DL (0.2-1.0) Aspartate Amino Transf (AST/SGOT) 13 U/L (15-37) L Alanine Aminotransferase (ALT/SGPT) 9 U/L (12-78) L Alkaline Phosphatase 125 U/L (46-116) H Troponin I 0.002 ng/mL (0.000-0.056) Total Protein 7.4 G/DL (6.4-8.2) Albumin 3.3 G/DL (3.4-5.0) L Globulin 4.1 g/dL Albumin/Globulin Ratio 0.8 (1.0-2.7) L Current Medications Medications (Trade) Dose Ordered Sig/Sergio Route PRN Reason Start Time Stop Time Status Last Admin Dose Admin Albuterol/ Ipratropium (Albuterol/ Ipratropium) 3 ml DAILY HHN 08/25/19 09:00 08/30/19 08:59 08/26/19 12:00 Albuterol/ Ipratropium (Albuterol/ Ipratropium) 3 ml Q6HRT PRN HHN Shortness of Breath 08/25/19 03:45 08/30/19 03:44 Aspirin (Ecotrin) 81 mg DAILY ORAL 08/25/19 09:00 10/09/19 08:59 08/26/19 09:07 Aztreonam 0.5 gm/ Dextrose 55 ml @ 110 mls/hr Q8HR IVPB 08/26/19 14:00 09/01/19 13:59 08/26/19 13:15 Buspirone HCl (Buspar) 7.5 mg BID ORAL 08/25/19 09:00 11/23/19 08:59 08/26/19 17:12 Clonidine HCl (Catapres Tab) 0.1 mg EVERY 12 HOURS ORAL 08/25/19 21:00 11/23/19 08:59 08/26/19 09:08 Dextrose (Dextrose 50%) 25 ml Q30M PRN IV Hypoglycemia 08/25/19 03:45 11/23/19 03:44 Dextrose (Dextrose 50%) 50 ml Q30M PRN IV Hypoglycemia 08/25/19 03:45 11/23/19 03:44 Escitalopram Oxalate (Lexapro) 10 mg DAILY ORAL 08/25/19 09:00 09/24/19 08:59 08/26/19 09:08 Heparin Sodium (Porcine) (Heparin 5000 units/ml) 5,000 units EVERY 12 HOURS SUBQ 08/25/19 21:15 10/09/19 21:14 08/25/19 21:56 Hydralazine HCl (Apresoline) 10 mg Q4H PRN IV sbp>170 08/25/19 14:00 11/23/19 13:59 08/26/19 17:23 Levothyroxine Sodium (Synthroid) 50 mcg DAILY@0630 ORAL 08/25/19 06:30 09/24/19 06:29 08/26/19 06:01 Losartan Potassium (Cozaar) 25 mg DAILY ORAL 08/26/19 09:00 09/24/19 08:59 08/26/19 09:08 Ondansetron HCl (Zofran) 4 mg Q6H PRN ORAL Nausea & Vomiting 08/25/19 03:45 09/24/19 03:44 Pantoprazole (Protonix) 40 mg DAILY ORAL 08/25/19 09:00 09/24/19 08:59 08/26/19 09:08 Pravastatin Sodium (Pravachol) 20 mg BEDTIME ORAL 08/25/19 21:00 09/24/19 20:59 08/25/19 20:52 Quetiapine Fumarate (SEROqueL) 50 mg QHS ORAL 08/25/19 21:00 10/09/19 08:59 08/25/19 20:52 Trimethoprim/ Sulfamethoxazole (Bactrim-DS) 1 tab DAILY ORAL 08/26/19 09:00 09/03/19 09:01 08/26/19 09:07 Vitamin D (Vitamin D) 1,000 intlu DAILY ORAL 08/25/19 09:00 09/24/19 08:59 08/26/19 09:08 Roslyn Rivera MD August 26, 2019 20:28
--- NOTE | 2019-08-26 22:14 | Consultation ---
DATE OF CONSULTATION: 08/26/2019 INFECTIOUS DISEASES CONSULTATION CONSULTING PHYSICIAN: Roslyn Rivera MD. ATTENDING PHYSICIAN: Diamond Moreno MD. REFERRING PHYSICIAN: Lenny Barry MD. REASON FOR CONSULTATION: Gram-negative complicated UTI. CHIEF COMPLAINT: The patient's chief complaint coming into the hospital is hypertensive urgency. HISTORY OF PRESENT ILLNESS: This is a very pleasant 84-year-old female who comes to [facility] with hypertensive urgency. The patient was noted to have a significant positive urinalysis and urine culture with gram-negative organisms. She also had some dizziness. The patient likely has complicated gram-negative UTI. Infectious Diseases consultation requested. She is allergic to penicillin. I saw the patient yesterday and placed her on aztreonam and Bactrim. Urine culture with gram-negative organisms. Identification is pending. MAR was noted. Orders were noted. Notes and records reviewed. REVIEW OF SYSTEMS: As discussed earlier she came with hypertensive urgency and also dizziness. She has no fever, chills, night sweats. She is alert. HEAD AND NECK: No headache, neck stiffness, dysphagia, or thrush. CARDIAC: No chest pain. No palpitations. GASTROINTESTINAL: No nausea, vomiting, abdominal pain, diarrhea. GENITOURINARY: She has some dysuria and frequency. No CVA tenderness. No Hoang. PULMONARY: No congestion, shortness of breath, hemoptysis, secretions. SKIN: No rash. EXTREMITIES: No pain. NEUROLOGIC: No seizures, generalized fatigue. No focal weakness. PAST MEDICAL HISTORY: The patient's past medical history includes the following: The patient has a past medical history of hypertension, hyperlipidemia, hypothyroidism, COPD, GERD. ALLERGIES: Penicillin. SOCIAL HISTORY: Negative for smoking, alcohol, or drug abuse. FAMILY HISTORY: Noncontributory. Negative for tuberculosis or cancer. MEDICATIONS: Upon reviewing the MAR, she is on following medications. She is on aztreonam, Bactrim. She is on losartan. She is on abx . She is on quetiapine. She is on clonidine as needed, hydralazine, aspirin, vitamin D, buspirone, vitamin B, pantoprazole, Lexapro, levothyroxine, Zofran, albuterol treatments as needed. Outside medications were noted and re-conciliated. PHYSICAL EXAMINATION: VITAL SIGNS: Temperature is 98.4, pulse is 94, respiratory rate 17, blood pressure 165/85, saturation 98% on 2 liters. GENERAL: Alert and responsive, no distress. HEAD AND NECK: Oral exam, no thrush. Eye exam, no icterus. Normocephalic. Neck is supple. No JVD. HEART: Regular. No gallop or murmur. No friction rub. ABDOMEN: Soft. Positive bowel sounds. Nontender. LUNGS: Clear bilaterally. No rhonchi and rales. SKIN: No rashes or dermatitis. MUSCULOSKELETAL: No effusion. No septic arthritis. Lower extremity exam without cellulitis PERIPHERAL VASCULAR: No cyanosis or gangrene. GENITOURINARY: No Hoang. No CVA tenderness. LINES: Lines sites are without phlebitis. NEUROLOGIC: Intact. Nonfocal. Alert and oriented x3. LABORATORY AND DIAGNOSTIC DATA: White count 5.4, hemoglobin 11.5. Creatinine is 1.1. UA had 2+ leukocyte esterase and 10 to 15 white blood cells, moderate bacteria. Urine culture greater than 100,000 gram-negative bacilli. Identification is pending. Chest x-ray showed atelectasis versus scarring. ASSESSMENT AND PLAN: 1. The patient has complicated gram-negative UTI with dizziness. She is allergic to penicillin. She is currently on aztreonam and she is tolerating in addition she is on Bactrim. Continue aztreonam and Bactrim for gram-negative coverage for complicated gram-negative UTI. Check urine culture. 2. Dizziness. 3. Hypertensive urgency. 4. Hypertension. 5. Hyperlipidemia. 6. Hypothyroidism. 7. COPD. 8. GERD. 9. Continue hypertension treatment per primary care team. 10. Continue anti-lipid treatment and thyroid supplementation. 11. Allergy to penicillin. 12. Social history is negative. 13. Family history is noncontributory. 14. MAR was noted. 15. Case discussed with RN. 16. Continue treatment per primary consultants. Roslyn Rivera M.D. DR: Sandip JOB#: [id number] CC: BONY
--- NOTE | 2019-08-26 22:27 | NUR ---
NURSE NOTES: Aztreonam 0.5gm IV not available on the floor. Called pipeline and asked if it's possible for the medication to be re-timed for tomorrow morning instead when the pharmacy opens. Concentration brought to the floor were Aztreonam 1gm/55ml only.
--- NOTE | 2019-08-26 23:10 | NUR ---
NURSE NOTES: Pharmacy brought the ordered dosage. Medication hung and running.
[2019-08-27] VITALS: BP 143/87
--- NOTE | 2019-08-27 03:35 | NUR ---
NURSE NOTES: Patient asleep, but easily arousable. Was upset about being transferred in the middle of the night that patient became tachycardic. Reassured patient that she won't be transferred anymore, per charge nurse. Patient stable. Bed in lowest position, brakes engaged and locked. Bed rails raised x2. Call light placed within reach. Will continue to monitor.
[2019-08-27 04:00] VITALS: BP 163/87
[2019-08-27] MEDS ORDERED: Aztreonam Inj 0.5 GM in D5W 55 ML IVPB SCH (06:00)
--- NOTE | 2019-08-27 07:30 | NUR ---
NURSE NOTES: Received report from REYMUNDO Orellana. Pt is awake and alert. pt has NC 2LMP. pt has intact iv access RFA 22G SL. Pt is on continues heart monitoring. no complain of pain at this moment. all needs attended, bed is locked and is in the lowest position. call light within easy reach. will continue to monitor.
[2019-08-27 07:31] LABS: BASOPHILS % (AUTO) 1.8 % (0.0-2.0); EOSINOPHILS % (AUTO) 5.5 % (0.0-3.0); HEMATOCRIT 36.7 % (37.0-47.0); HEMOGLOBIN 12.2 G/DL (12.0-16.0); LYMPHOCYTES % (AUTO) 49.9 % (20.0-45.0); MEAN CORPUSCULAR VOLUME 78 FL (80-99); MONOCYTES % (AUTO) 6.6 % (1.0-10.0); NEUTROPHILS % (AUTO) 36.2 % (45.0-75.0); PLATELET COUNT 221 K/UL (150-450); RED BLOOD COUNT 4.69 M/UL (4.20-5.40); RED CELL DISTRIBUTION WIDTH 16.8 % (11.6-14.8); WHITE BLOOD COUNT 5.6 K/UL (4.8-10.8)
[2019-08-27 07:39] LABS: ALANINE AMINOTRANSFERASE 12 U/L (12-78); ALBUMIN 3.9 G/DL (3.4-5.0); ALBUMIN/GLOBULIN RATIO 0.9 (1.0-2.7); ALKALINE PHOSPHATASE 121 U/L (46-116); ANION GAP 10 mmol/L (5-15); ASPARTATE AMINO TRANSFERASE 13 U/L (15-37); BILIRUBIN,TOTAL 0.5 MG/DL (0.2-1.0); BLOOD UREA NITROGEN 16 mg/dL (7-18); CALCIUM 9.1 MG/DL (8.5-10.1); CARBON DIOXIDE 25 MMOL/L (21-32); CHLORIDE 106 MMOL/L (98-107); POTASSIUM 3.7 MMOL/L (3.5-5.1); SODIUM 141 MMOL/L (136-145)
--- NOTE | 2019-08-27 07:45 | NUR ---
HAND-OFF: Report given to REYMUNDO Wise. Patient stable. New IV site endorsed.
[2019-08-27 08:00] VITALS: BP 172/104
[2019-08-27] MEDS: Aspirin EC 81mg tab ORAL SCH (08:25)
[2019-08-27] MEDS: BusPIRone 5mg Tab ORAL SCH (08:25)
[2019-08-27] MEDS: Losartan 25mg tab ORAL SCH (08:25)
[2019-08-27] MEDS: Vitamin D 1000 IU Tab ORAL SCH (08:26)
[2019-08-27] MEDS: Bactrim-DS 1 tab ORAL SCH (08:26)
[2019-08-27] MEDS: Heparin 5000 units/ml inj SUBQ SCH (08:26)
--- NOTE | 2019-08-27 08:27 | NUR ---
NURSE NOTES: 10mg hydralazine is wasted in med room.
[2019-08-27 10:00] VITALS: BP 158/98
[2019-08-27] MEDS: Albuterol/Ipratropium 3ml neb HHN SCH (10:00)
--- NOTE | 2019-08-27 10:37 | NUR ---
NURSE NOTES: Pt is dressed up and asked to be discharged, Dr Lay is aware and stated he won't D/C pt due to waiting for U/C result, pt is notified but pt insisted to sign AMA, RN explained risks but pt insists to go home, Dr Lay is aware, pt signed AMA, All belongings are with pt and she signed belongings list, pt's meds received from pharmacy and given to pt. pt is stable, waiting for behavioral health care coordinator Susan to pick pt up. will continue to monitor.
[2019-08-27 11:29] VITALS: BP 137/83
--- NOTE | 2019-08-27 11:44 | Cardiac Electrophysiology PN ---
Assessment/Plan Assessment/Plan 1. Accelerated hypertension.Continue Cozaar 25 mg daily, clonidine 0.1 mg bid and p.r.n. medication. 2. Hyperlipidemia, on Pravachol. 3. Dizziness. Head CT showed no acute intracranial abnormality. EKG shows normal sinus rhythm with left ventricular hypertrophy, nonspecific ST wave abnormalities and echocardiogram EF 55% 4. Urinary tract infection. On aztreonam by Dr. Rivera. 5. Hypothyroidism, on Synthroid. 6. COPD, on albuterol. Signing out AMA. DW RN Subjective Subjective Felling better and BP is better. No Cp or SOB in SR. Signing out AMA Objective Last 24 Hour Vital Signs Date Time Temp Pulse Resp B/P (MAP) Pulse Ox O2 Delivery O2 Flow Rate FiO2 08/27/19 11:29 97.8 96 20 137/83 (101) 96 08/27/19 10:00 158/98 (118) 08/27/19 10:00 90 22 100 Room Air 92 16 97 08/27/19 09:00 Nasal Cannula 2.0 08/27/19 08:26 172/104 08/27/19 08:26 172/104 08/27/19 08:25 172/104 08/27/19 08:00 97.9 90 20 172/104 (126) 98 08/27/19 07:39 78 08/27/19 04:00 77 08/27/19 04:00 98.3 90 18 163/87 (112) 100 08/27/19 00:00 79 08/27/19 00:00 97.4 100 20 143/87 (105) 95 08/26/19 21:50 158/98 08/26/19 21:00 Nasal Cannula 2.0 08/26/19 20:00 97.9 111 20 158/98 (118) 96 08/26/19 20:00 81 08/26/19 18:00 161/72 (101) 08/26/19 17:23 172/86 08/26/19 16:00 98.4 94 17 165/85 (111) 98 08/26/19 15:09 82 08/26/19 12:00 89 20 100 Nasal Cannula 2.0 28 87 18 98 08/26/19 11:58 97.8 86 16 151/83 (105) 98 08/26/19 11:48 90 Intake and Output 5/18/20 5/19/20 19:00 07:00 Intake Total 685 ml 315 ml Output Total 600 ml 200 ml Balance 85 ml 115 ml Intake Oral 630 ml 150 ml IV Total 55 ml 55 ml Other 110 ml Output Urine Total 600 ml 200 ml # Voids 1 Laboratory Tests Test 08/27/19 06:23 White Blood Count 5.6 K/UL (4.8-10.8) Red Blood Count 4.69 M/UL (4.20-5.40) Hemoglobin 12.2 G/DL (12.0-16.0) Hematocrit 36.7 % (37.0-47.0) L Mean Corpuscular Volume 78 FL (80-99) L Mean Corpuscular Hemoglobin 25.9 PG (27.0-31.0) L Mean Corpuscular Hemoglobin Concent 33.1 G/DL (32.0-36.0) Red Cell Distribution Width 16.8 % (11.6-14.8) H Platelet Count 221 K/UL (150-450) Mean Platelet Volume 5.7 FL (6.5-10.1) L Neutrophils (%) (Auto) 36.2 % (45.0-75.0) L Lymphocytes (%) (Auto) 49.9 % (20.0-45.0) H Monocytes (%) (Auto) 6.6 % (1.0-10.0) Eosinophils (%) (Auto) 5.5 % (0.0-3.0) H Basophils (%) (Auto) 1.8 % (0.0-2.0) Sodium Level 141 MMOL/L (136-145) Potassium Level 3.7 MMOL/L (3.5-5.1) Chloride Level 106 MMOL/L (98-107) Carbon Dioxide Level 25 MMOL/L (21-32) Anion Gap 10 mmol/L (5-15) Blood Urea Nitrogen 16 mg/dL (7-18) Creatinine 1.0 MG/DL (0.55-1.30) Estimat Glomerular Filtration Rate > 60 mL/min (>60) Glucose Level 118 MG/DL (74-106) H Calcium Level 9.1 MG/DL (8.5-10.1) Total Bilirubin 0.5 MG/DL (0.2-1.0) Aspartate Amino Transf (AST/SGOT) 13 U/L (15-37) L Alanine Aminotransferase (ALT/SGPT) 12 U/L (12-78) Alkaline Phosphatase 121 U/L (46-116) H Total Protein 8.3 G/DL (6.4-8.2) H Albumin 3.9 G/DL (3.4-5.0) Globulin 4.4 g/dL Albumin/Globulin Ratio 0.9 (1.0-2.7) L Microbiology Date/Time Source Procedure Growth Status 08/24/19 21:45 Urine,Clean Catch Urine Culture - Preliminary Gram Negative Bacillus 1 Resulted Objective HEAD AND NECK: No JVD. LUNGS: Clear. CARDIOVASCULAR: Regular S1 and S2 with no gallop or murmur. ABDOMEN: Soft. EXTREMITIES: No pitting edema. Bartolo Alston MD August 27, 2019 11:44
--- NOTE | 2019-08-27 11:55 | NUR ---
NURSE NOTES: pt is stable, V/S stable, IV access D/C, pt left hospital, RN accompanied pt till lobby.
--- NOTE | 2019-08-27 13:42 | NUR ---
P.T Note: late entry 0945 P.T evaluation completed. Pt is functionally at baseline. Skilled P.T service is not warranted at this time. DC P.T services.
--- NOTE | 2019-08-27 18:13 | Discharge Summary ---
Discharge Summary Hospital Course Date of Admission August 24, 2019 at 22:31 Date of Discharge August 27, 2019 at 12:01 Admitting Diagnosis hypertensive urgency HPI Monica Valdez is a 84 year old female who was admitted on August 24, 2019 at 22:31 for Hypertensive Urgency Consultations ID,Cardiology Procedures None Hospital Course 84 F with HLD, HTN, DM, GERD p/w acute onset of lightheadedness secondary to hypertensive urgency. Discharge Diagnoses #Hypertensive urgency, variable control #Hx of essential hypertension #Urinary tract infection #Acute cystitis, gram neg in urine culture #Hyperlipidemia #Non-insulin dependant type II DM: #Hypothyroidism #GERD #COPD Hospital Course: Patient initially admitted to the medical service for uncontrolled HTN, also found to have gram negative UTI. Seen by Cardiology and ID, treated with Bactrim. Urine culture grew gram negative but patient decided to sign out AMA before final cultures. Discharge Discharge Vital Signs Last Vital Signs Date Time Temp Pulse Resp B/P (MAP) Pulse Ox O2 Delivery O2 Flow Rate FiO2 08/27/19 11:29 97.8 96 20 137/83 (101) 96 08/27/19 10:00 Room Air 08/27/19 09:00 2.0 08/26/19 12:00 28 Discharge Disposition Patient signed out AMA Discharge Diagnoses: (1) Hypertensive urgency Bjorn Castillo MD August 27, 2019 18:13
== END 2019-08-27 12:01 | disposition left against medical advice (07) | DRG 305 ==
LOC: EMR 21:52 → EDBEDREQ 22:10 → 2E 22:31 → OBSVTOIN 22:31 → EDBEDREQ 08-25 00:54
DX: I16.0 Hypertensive urgency (principal); N30.00 Acute cystitis without hematuria; E03.9 Hypothyroidism, unspecified; Z88.0 Allergy status to penicillin; I10 Essential (primary) hypertension; E11.9 Type 2 diabetes mellitus without complications; Z79.84 Long term (current) use of oral hypoglycemic drugs; K21.9 Gastro-esophageal reflux disease without esophagitis; J44.9 Chronic obstructive pulmonary disease, unspecified; B96.89 Other specified bacterial agents as the cause of diseases classified elsewhere; E78.5 Hyperlipidemia, unspecified; Z79.82 Long term (current) use of aspirin
CPT/HCPCS: 36415; 70450; 71045; 80053; 81003; 82550; 82962; 83880; 84484; 85025; 85610; 85730; 87086; 87181; 93005; 93306; 94640; 96365; 96375; 99285; J1815; J7620

== ENCOUNTER 2020-03-29 17:27 | Emergency (ER) | payer MEDICARE, OTHER ==
[~2020-03-29] VITALS: Ht 154.9 cm; Wt 51.7 kg
[~2020-03-29 17:27] MED LIST changes: +BUSPIRONE HCL5 M2 ORAL; +CATAPRES0.1 MG ORAL; +GLUCOPHAGE500 MG ORAL; +PRAVACHOL20 MG ORAL
[2020-03-29] MEDS ORDERED: Solu-MEDROL 125mg Inj IVP ONE (18:00)
[2020-03-29] MEDS: Albuterol/Ipratropium 3ml neb HHN SCH ×2 (18:06→18:08)
--- NOTE | 2020-03-29 18:11 | NUR ---
ED Nurse Note: pt presents to ED c/o SOB x 2 days. pt reports that she is on O2 at home and that she used her nebulized breathing treatment this AM with only short term relief of her symptoms. pt denies any fevers, chills, loss of taste or smell. she reports a (-) COVId test on 03/16 and denies any sick contacts since then Addendum: 03/29/20 at 1846 by JERED pt has audible wheezes and a cough, she is refusing any type of IV start or blood draw at this time
[2020-03-29 18:12] VITALS: BP 161/83
--- NOTE | 2020-03-29 18:13 | NUR ---
ED Nurse Note: pt reports that she usually has SpO2 around 89% on O2 at home due to her COPD
--- NOTE | 2020-03-29 18:22 | Emergency Room Report ---
History of Present Illness General Chief Complaint: Dyspnea/Respdistress Source: Patient Present Illness HPI 84-year-old female with history of COPD, hypertension, diabetes currently taking medication here complaining of diffuse wheezing, and cough x2 days. Reports that she continues to smoke, wants to receive breathing treatments and does not want to stay in the hospital. Denies chest pain at this time. Denies diarrhea, loss of taste and smell. Reports that she last tested negative for Covid beginning of March 2020. Patient normal oxygenation is at 89-90%. Patient appears to have 82% O2 stats today. Patient speaking in full sentences in no distress. Allergies: Coded Allergies: PENICILLIN V (Verified Allergy, Severe, 08/26/13) PENICILLINS (Unverified Allergy, Unknown, 06/26/19) COVID-19 Screening Contact w/high risk pt: No Recent Travel to affected area: No Experienced COVID-19 symptoms?: No COVID-19 symptoms experienced: Shortness of Breath, Cough COVID-19 Testing performed HEEL EMERY BUFFER: No Patient History Last Menstrual Period: na Reviewed Nursing Documentation: PMH: Agreed; PSxH: Agreed Nursing Documentation-PMH Past Medical History: No History, Except For Hx Cardiac Problems: Yes Hx Hypertension: Yes Hx COPD: Yes Hx Diabetes: Yes - DM II Hx Cancer: No Hx Gastrointestinal Problems: Yes - constipation Hx Neurological Problems: Yes Hx Vertigo: Yes Hx Dizziness: Yes Hx Syncope: Yes Hx Weakness: Yes Review of Systems All Other Systems: negative except mentioned in HPI Physical Exam Vital Signs Date Time Temp Pulse Resp B/P (MAP) Pulse Ox O2 Delivery O2 Flow Rate FiO2 03/29/20 17:41 98.1 118 28 161/83 (109) 82 Room Air Sp02 EP Interpretation: reviewed, abnormal - abnormal O2 stats General Appearance: no apparent distress, alert, GCS 15, non-toxic Head: normocephalic, atraumatic Eyes: bilateral eye normal inspection, bilateral eye PERRL ENT: no angioedema Neck: supple Respiratory: no respiratory distress, no retraction, no accessory muscle use, wheezing - audible diffuse wheezing Cardiovascular #1: regular rate, rhythm Gastrointestinal: non-distended Musculoskeletal: back normal Neurologic: alert, motor strength/tone normal, oriented x3, sensory intact, responsive, speech normal Psychiatric: judgement/insight normal, memory normal, mood/affect normal, no suicidal/homicidal ideation Skin: no rash Lymphatic: no adenopathy Medical Decision Making PA Attestation All diagnoses and treatment plans were reviewed and discussed with my supervising physician Dr. Solorzano Diagnostic Impression: Primary Impression: Wheezing Additional Impression: Hypoxia ER Course 84-year-old female with history of COPD, hypertension, diabetes currently taking medication here complaining of diffuse wheezing, and cough x2 days. Reports that she continues to smoke, wants to receive breathing treatments and does not want to stay in the hospital. Denies chest pain at this time. Denies diarrhea, loss of taste and smell. Reports that she last tested negative for Covid beginning of March 2020. Patient normal oxygenation is at 89-90%. Patient appears to have 82% O2 stats today. Patient speaking in full sentences in no distress. Ddx considered but are not limited to: bronchitis, PNA, URI viral, bacterial bronchitis, asthma exacerbation, coronavirus Vital signs: are WNL, pt. is afebrile H&PE are most consistent with: Wheezing, hypoxia ORDERS: Chest x-ray, prednisone, azithromycin ED INTERVENTIONS: Solu-Medrol, shortness of albuterol breathing treatment Patient was advised to have blood work done and stated hospital due to low O2 stats and comorbidities however patient repeatedly states that she has multiple breathing treatments at home to go back home does not want to stay in the hospital. Patient had full duty making this decision, patient left AGAINST MEDICAL ADVICE Chest X-Ray Diagnostic Results Chest X-Ray Diagnostic Results : Chest X-Ray Ordered: Yes # of Views/Limited/Complete: 1 View Indication: Shortness of Breath EP Interpretation: Yes ZAY Xray: Interpretation reviewed, by supervising MD, and agrees with findings. Interpretation: no consolidation, no effusion, no pneumothorax, no acute cardiopulmonary disease Impression: No acute disease Electronically Signed by: Kirby Livingston PA-C Last Vital Signs Date Time Temp Pulse Resp B/P (MAP) Pulse Ox O2 Delivery O2 Flow Rate FiO2 03/29/20 17:41 98.1 118 28 161/83 (109) 82 Room Air Disposition: AGAINST MEDICAL ADVICE Condition: Serious Referrals: LEROY MALAVE (PCP) Patient Instructions: Shortness of Breath, [id number] Kirby Sellers Mar 29, 2020 18:22
[2020-03-29] MEDS ORDERED: ZITHROMAX250 MG ORAL (18:23)
[2020-03-29] MEDS ORDERED: PREDNISONE20 MG ORAL (18:23)
--- NOTE | 2020-03-29 18:26 | Diagnostic Imaging Report ---
EXAM: XR Chest, 1 View CLINICAL HISTORY: SOB TECHNIQUE: Frontal view of the chest. COMPARISON: 08/24/2019 FINDINGS: Lungs: Mild right midlung subsegmental atelectasis. Otherwise no acute cardiopulmonary disease. If felt to alter management, consider outpatient CT chest to further evaluate possible left midlung 0.6 cm lateral nodule. Pleural space: Unremarkable. No pneumothorax. Heart: Unchanged mild cardiomegaly. Mediastinum: Unremarkable. Bones/joints: No acute abnormality IMPRESSION: 1. Mild right midlung subsegmental atelectasis. 2. Otherwise no acute cardiopulmonary disease. 3. Unchanged mild cardiomegaly. 4. If felt to alter management, consider outpatient CT chest to further evaluate possible left midlung 0.6 cm lateral nodule.
[2020-03-29 18:45] VITALS: BP 161/83
--- NOTE | 2020-03-29 18:47 | NUR ---
ER DISCHARGE NOTE: Patient is cleared to be discharged per ERMD, pt is aox4, on room air, with stable vital signs. pt was given dc and prescription instructions, pt was able to verbalize understanding, pt id band removed without complications. pt is able to ambulate with steady gait. pt took all belongings.
== END 2020-03-29 18:45 | disposition left against medical advice (07) ==
LOC: EMR 17:49
DX: R06.2 Wheezing (principal); R09.02 Hypoxemia; R05 Cough; R06.02 Shortness of breath; I10 Essential (primary) hypertension; E11.9 Type 2 diabetes mellitus without complications; J44.9 Chronic obstructive pulmonary disease, unspecified; K59.00 Constipation, unspecified; Z88.0 Allergy status to penicillin; F17.200 Nicotine dependence, unspecified, uncomplicated
CPT/HCPCS: 71045; 94640; 96374; 99284; J2930; J7620

== ENCOUNTER → 2020-07-06 | Emergency (ER) | payer MEDICARE, OTHER ==
[~2020-07-06] VITALS: Ht 154.9 cm; Wt 51.7 kg
[~2020-07-06] MED LIST changes: +PREDNISONE20 MG ORAL; +ZITHROMAX250 MG ORAL
[2020-07-06 11:41] VITALS: BP 157/90
--- NOTE | 2020-07-06 12:36 | Diagnostic Imaging Report ---
Indications: Head trauma, laceration to back of head Technique: Spiral acquisitions obtained through the brain. Angled axial and coronal 5 x 5 mm slices were reconstructed. Total dose length product 965 mGycm. CTDI vol(s) 53 mGy. Dose reduction achieved using automated exposure control Comparison: 08/26/2019 Findings: Again demonstrated is age-related enlargement of the ventricles and extra-axial CSF spaces. Again demonstrated is periventricular deep white matter low-attenuation, likely chronic microvascular ischemic change. 5 mm extra-axial lesion in the right parietal region posteriorly is again demonstrated, probably a tiny meningioma. No acute intracranial hemorrhage or edema, mass effect, nor midline shift. 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 The calvarium is intact. The mastoids are clear. The visualized orbits and sinuses are unremarkable. Findings are unchanged Impression: Chronic and age-related changes Negative for acute intracranial bleed or mass effect The CT scanner at [facility] is accredited by the [employer] and the scans are performed using protocols designed to limit radiation exposure to as low as reasonably achievable to attain images of sufficient resolution adequate for diagnostic evaluation.
--- NOTE | 2020-07-06 12:49 | Emergency Room Report ---
History of Present Illness General Chief Complaint: Multiple Trauma/Fall Source: Patient, Caregiver Present Illness HPI 84-year-old female presents for evaluation. Dry House Attendant at bedside states that patient fell and hit her head yesterday. No LOC. Bleeding to the back of the scalp. Last tetanus unknown. Patient denies pain. Denies any loss of consciousness. Denies any other injuries. No other aggravating relieving factors. Denies any other associated symptoms Allergies: Coded Allergies: PENICILLIN V (Verified Allergy, Severe, 08/26/13) PENICILLINS (Unverified Allergy, Unknown, 06/26/19) COVID-19 Screening Contact w/high risk pt: No Recent Travel to affected area: No Experienced COVID-19 symptoms?: No COVID-19 symptoms experienced: Shortness of Breath, Cough COVID-19 Testing performed DISASTER OR DAMAGE CONTROL SPECIALIST: No Patient History Past Medical History: DM, HTN, COPD Social History: Denies: smoking, alcohol use, drug use Last Menstrual Period: na Now: No Immunizations: UTD Reviewed Nursing Documentation: PMH: Agreed; PSxH: Agreed Nursing Documentation-PMH Hx Cardiac Problems: Yes Hx Hypertension: Yes Hx COPD: Yes Hx Diabetes: Yes - DM II Hx Cancer: No Hx Gastrointestinal Problems: Yes - constipation Hx Neurological Problems: Yes Hx Vertigo: Yes Hx Dizziness: Yes Hx Syncope: Yes Hx Weakness: Yes Review of Systems All Other Systems: negative except mentioned in HPI Physical Exam Vital Signs Date Time Temp Pulse Resp B/P (MAP) Pulse Ox O2 Delivery O2 Flow Rate FiO2 07/06/20 11:15 98.2 82 20 158/86 (110) 89 Room Air Sp02 EP Interpretation: reviewed, normal General Appearance: no apparent distress, alert, GCS 15, non-toxic, thin Head: normocephalic, other - abrasions to posterior scalp. no active bleeding Eyes: bilateral eye normal inspection, bilateral eye PERRL ENT: hearing grossly normal, normal pharynx, no angioedema, normal voice Neck: full range of motion, supple/symm/no masses Respiratory: chest non-tender, lungs clear, normal breath sounds, speaking full sentences Cardiovascular #1: regular rate, rhythm, no edema Cardiovascular #2: 2+ carotid (R), 2+ carotid (L), 2+ radial (R), 2+ radial (L), 2+ dorsalis pedis (R), 2+ dorsalis pedis (L) Gastrointestinal: normal bowel sounds, non tender, soft, non-distended, no guarding, no rebound Rectal: deferred Genitourinary: normal inspection, no CVA tenderness Musculoskeletal: back normal, normal range of motion, gait/station normal, non- tender Neurologic: alert, motor strength/tone normal, oriented x3, sensory intact, responsive, speech normal Psychiatric: judgement/insight normal, memory normal, mood/affect normal, no suicidal/homicidal ideation Reflexes: 3+ bicep (R), 3+ bicep (L), 3+ tricep (R), 3+ tricep (L), 3+ knee (R), 3+ knee (L) Skin: no rash Lymphatic: no adenopathy Medical Decision Making Diagnostic Impression: Primary Impression: Head injury Qualified Codes: S09.90XA - Unspecified injury of head, initial encounter ER Course Hospital Course 84-year-old female presents with head injury last night. Differential diagnoses include: skull fx, intracranial injury, concussion Clinical course Patient placed on stretcher. After initial history and physical I ordered CT head CT head shows no acute process. discussed findings with patient and caregiver and son over the phone. Bacitracin applied. Tetanus given. Patient's fall injury happened approximately 14 hours ago. No focal deficits. Oriented to baseline. I believe it is safe to discharge patient home. Close follow-up with PMD. Diagnosis - head injury Stable and discharged to home. Followup with PMD. Return to ED if symptoms recur or worsen CT/MRI/US Diagnostic Results CT/MRI/US Diagnostic Results : Imaging Test Ordered: CT Head Impression Procedure: CT Head no Contrast Indications: Head trauma, laceration to back of head Technique: Spiral acquisitions obtained through the brain. Angled axial and coronal 5 x 5 mm slices were reconstructed. Total dose length product 965 mGycm. CTDI vol(s) 53 mGy. Dose reduction achieved using automated exposure control Comparison: 08/26/2019 Findings: Again demonstrated is age-related enlargement of the ventricles and extra-axial CSF spaces. Again demonstrated is periventricular deep white matter low-attenuation, likely chronic microvascular ischemic change. 5 mm extra-axial lesion in the right parietal region posteriorly is again demonstrated, probably a tiny meningioma. No acute intracranial hemorrhage or edema, mass effect, nor midline shift. 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 The calvarium is intact. The mastoids are clear. The visualized orbits and sinuses are unremarkable. Findings are unchanged Impression: Chronic and age-related changes Negative for acute intracranial bleed or mass effect The CT scanner at [facility] is accredited by the [employer] and the scans are performed using protocols designed to limit radiation exposure to as low as reasonably achievable to attain images of sufficient resolution adequate for diagnostic evaluation. Last Vital Signs Date Time Temp Pulse Resp B/P (MAP) Pulse Ox O2 Delivery O2 Flow Rate FiO2 07/06/20 11:41 98.2 91 19 157/90 98 Room Air Status: improved Disposition: HOME, SELF-CARE Condition: Stable Referrals: NOT CHOSEN IPA/,REFERRING (PCP) Danilo Quevedo MD Jul 06, 2020 12:49
[2020-07-06] MEDS: Bacitracin Oint UD TOPIC ONE (13:04)
[2020-07-06] MEDS: Tetanus/Diptheria/Pertussis IM ONE (13:13)
== END | disposition home or self-care (01) ==
LOC: EMR 12:14
DX: S00.01XA Abrasion of scalp, initial encounter (principal); W19.XXXA Unspecified fall, initial encounter; Y92.9 Unspecified place or not applicable; Z88.0 Allergy status to penicillin; E11.9 Type 2 diabetes mellitus without complications; I10 Essential (primary) hypertension; J44.9 Chronic obstructive pulmonary disease, unspecified; Z23 Encounter for immunization
CPT/HCPCS: 70450; 90471; 90715; 99284